=== PATIENT | female | born 1950 | race Asian ===

== ENCOUNTER 2016-07-12 23:10 | Inpatient (IN) | payer MEDICARE, OTHER ==
[~2016-07-12] VITALS: Ht 152.4 cm; Wt 57.9 kg
[~2016-07-12 23:10] MED LIST: ACET-2902 PO; ADV100 IH; ALBU8.5H IH; AMLO-512 PO; ATOR40TA28 PO; CLON.2 PO; FURO40 PO; HYDR50 PO; INSLAN SQ; ISOS30TA6 PO; TIOT185 IH; VITAD1000 PO
[2016-07-12 23:27] LABS: GLUCOSE COMMENT 1 Doctor Notified; GLUCOSE,POINT OF CARE 390 MG/DL (70-110)
[2016-07-12] MEDS ORDERED: BUME1TAB30 PO (23:28)
[2016-07-12] MEDS ORDERED: POTA10TA14 PO (23:28)
[2016-07-12] MEDS ORDERED: OMEG-11 PO (23:28)
[2016-07-12] MEDS ORDERED: INSU100I15 SQ (23:28)
[2016-07-12] MEDS ORDERED: ALLO100T PO (23:28)
[2016-07-12] MEDS ORDERED: ASPI81 PO (23:28)
[2016-07-12] MEDS ORDERED: ENAL20 PO (23:28)
[2016-07-12] MEDS ORDERED: NIFE60TA81 PO (23:28)
[2016-07-12] MEDS ORDERED: CARV3 PO (23:28)
[2016-07-13] VITALS (8 sets, daily range): BP systolic 97–189; BP diastolic 50–77
[2016-07-13 00:09] LABS: BASOPHILS % (AUTO) 0.6 % (0.0-2.0); EOSINOPHILS % (AUTO) 3.2 % (1.0-6.0); HEMATOCRIT 29.8 % (36-46); HEMOGLOBIN 9.2 g/dL (12.0-16.0); LYMPHOCYTES # (AUTO) 0.9 K/uL (1.0-4.8); LYMPHOCYTES % (AUTO) 11.6 % (22.0-44.0); MEAN CORPUSCULAR HEMOGLOBIN 25.2 pg (26.0-34.0); MEAN CORPUSCULAR HGB CONC 30.7 G/dL (31.0-37.0); MEAN CORPUSCULAR VOLUME 82 fL (80-100); MONOCYTES # (AUTO) 0.4 K/uL (0.1-1.0); MONOCYTES % (AUTO) 4.5 % (2.0-9.0); NEUTROPHILS # (AUTO) 6.3 K/uL (1.8-7.7); NEUTROPHILS % (AUTO) 80.1 % (40.0-70.0); PLATELET COUNT (AUTO) 339 K/uL (150-450); RED BLOOD CELL COUNT(AUTO) 3.63 MIL/uL (4.00-5.20); RED CELL DISTRIBUTION WIDTH 17.7 % (11.5-14.5); WHITE BLOOD COUNT (AUTO) 7.9 K/uL (4.5-11.0)
[2016-07-13 00:22] LABS: CALCIUM, TOTAL 8.1 mg/dL (8.8-10.5); CREATININE 3.17 mg/dL (0.60-1.30); POTASSIUM 4.4 mmol/L (3.5-5.1)
[2016-07-13] MEDS ORDERED: INSULIN REGULAR, HUMAN 100 UNITS/ML SQ ONE (01:00)
[2016-07-13 01:04] LABS: ALBUMIN 2.4 g/dL (3.4-5.0); BILIRUBIN,TOTAL 0.3 mg/dL (0.1-1.0); CREATINE KINASE MB 5.7 ng/mL (0-5); TOTAL PROTEIN, SERUM 7.5 g/dL (6.4-8.2)
[2016-07-13] MEDS ORDERED: INSULIN REGULAR, HUMAN 100 UNITS/ML IVP ONE (01:15)
[2016-07-13] MEDS ORDERED: ACETAMINOPHEN 1000 MG/ISO-OSM 100 ML IV ONE (01:30)
[2016-07-13] MEDS ORDERED: FUROSEMIDE 40 MG/4 ML VIAL IVP ONE (01:30)
[2016-07-13] MEDS ORDERED: FUROSEMIDE 20 MG/2 ML VIAL IVP ONE (01:30)
[2016-07-13 03:22] LABS: GLUCOSE,POINT OF CARE 179 MG/DL (70-110)
[2016-07-13] MEDS ORDERED: 0.9% SODIUM CHLORIDE 10 ML SYRINGE IVP PRN ×2 (03:45→14:15)
[2016-07-13] MEDS ORDERED: ONDANSETRON HCL 4 MG/2 ML VIAL IVP PRN ×2 (03:45→14:15)
[2016-07-13] MEDS ORDERED: ACETAMINOPHEN 325 MG TABLET PO PRN (03:45)
[2016-07-13] MEDS ORDERED: KDUR20 PO (12:22)
[2016-07-13] MEDS ORDERED: INSULIN ASPART 100 UNITS/ML SQ PRN (12:30)
[2016-07-13] MEDS ORDERED: DEXTROSE 50%-WATER 25 GM/50 ML SYRINGE IVP PRN ×3 (12:30→18:15)
[2016-07-13] MEDS ORDERED: CARVEDILOL 3.125 MG TABLET PO SCH (14:00)
[2016-07-13] MEDS: POTASSIUM CHLORIDE 20 MEQ ER TABLET PO SCH ×2 (14:00→20:39)
[2016-07-13] MEDS ORDERED: NIFEdipine 60 MG ER TABLET PO SCH (14:00)
[2016-07-13] MEDS ORDERED: MAGNESIUM HYDROXIDE SUSPENSION 30 ML UDCUP PO PRN (14:15)
[2016-07-13] MEDS: CHOLECALCIFEROL (VIT D3) 1,000 UNITS TABLET PO SCH (15:05)
[2016-07-13] MEDS: PANTOPRAZOLE SODIUM 40 MG/VIAL IVP SCH (15:05)
[2016-07-13] MEDS: ASPIRIN 81 MG CHEWABLE TABLET PO SCH (15:05)
[2016-07-13] MEDS: DOCUSATE SODIUM 100 MG CAPSULE PO SCH ×2 (15:05→20:39)
[2016-07-13] MEDS: ATORVASTATIN CALCIUM 40 MG TABLET PO SCH (15:05)
[2016-07-13] MEDS: AmLODIPine BESYLATE 10 MG TABLET PO SCH (15:05)
[2016-07-13] MEDS: BUMETANIDE 0.25 MG/ML 10 ML VIAL IVP SCH ×2 (15:24→20:39)
[2016-07-13] MEDS: FISH OIL/OMEGA-3 FATTY ACIDS 500 MG CAPSULE PO SCH (15:25)
[2016-07-13] MEDS: TIOTROPIUM BROMIDE 18 MCG/INH HANDIHALER [5] IH SCH (15:25)
[2016-07-13] MEDS: ENALAPRIL MALEATE 20 MG TABLET PO SCH (15:25)
[2016-07-13] MEDS: ALLOPURINOL 100 MG TABLET PO SCH (15:25)
[2016-07-13] MEDS: CloNIDine HCL 0.2 MG TABLET PO SCH (15:25)
[2016-07-13] MEDS: HydrALAZINE HCL 50 MG TABLET PO SCH ×3 (15:35→21:00)
[2016-07-13] MEDS ORDERED: HydrALAZINE HCL 20 MG/ML VIAL IVP PRN (17:15)
[2016-07-13] MEDS: HydrALAZINE HCL 20 MG/ML VIAL IVP PRN (18:19)
[2016-07-13] MEDS: INSULIN ASPART 100 UNITS/ML SQ PRN ×2 (18:22→20:45)
[2016-07-13] MEDS ORDERED: INSULIN DETEMIR 100 UNITS/ML SQ SCH (21:00)
[2016-07-13] MEDS: MORPHINE SULFATE 2 MG/ML SYRINGE IVP PRN (21:55)
[2016-07-13] MEDS ORDERED: SODIUM CHLORIDE 0.9% 250 ML IV ONE (21:59)
[2016-07-13] MEDS ORDERED: ALBUMIN HUMAN 25%-12.5GM/50ML 50 ML IV ONE (22:00)
[2016-07-14] VITALS (8 sets, daily range): BP systolic 136–172; BP diastolic 66–80
[2016-07-14] MEDS: MORPHINE SULFATE 2 MG/ML SYRINGE IVP PRN ×2 (04:40→13:15)
[2016-07-14 07:14] LABS: BASOPHILS % (AUTO) 0.5 % (0.0-2.0); EOSINOPHILS % (AUTO) 4.3 % (1.0-6.0); HEMATOCRIT 26.9 % (36-46); HEMOGLOBIN 8.4 g/dL (12.0-16.0); LYMPHOCYTES # (AUTO) 0.7 K/uL (1.0-4.8); LYMPHOCYTES % (AUTO) 8.5 % (22.0-44.0); MEAN CORPUSCULAR HEMOGLOBIN 25.7 pg (26.0-34.0); MEAN CORPUSCULAR HGB CONC 31.2 G/dL (31.0-37.0); MEAN CORPUSCULAR VOLUME 82 fL (80-100); MONOCYTES # (AUTO) 0.5 K/uL (0.1-1.0); MONOCYTES % (AUTO) 6.2 % (2.0-9.0); NEUTROPHILS # (AUTO) 6.5 K/uL (1.8-7.7); NEUTROPHILS % (AUTO) 80.5 % (40.0-70.0); PLATELET COUNT (AUTO) 314 K/uL (150-450); RED BLOOD CELL COUNT(AUTO) 3.27 MIL/uL (4.00-5.20); RED CELL DISTRIBUTION WIDTH 17.7 % (11.5-14.5)
[2016-07-14 07:49] LABS: B-TYPE NATRIURETIC PEPTIDE 851 pg/mL (0-100)
[2016-07-14 07:56] LABS: ANION GAP 10 mmol/L (8-16); CALCIUM, TOTAL 7.7 mg/dL (8.8-10.5); CARBON DIOXIDE 21 mmol/L (22-29); CHLORIDE 104 mmol/L (98-107); CREATINE KINASE MB 3.9 ng/mL (0-5); CREATINE KINASE, TOTAL 90 U/L (26-192); CREATININE 3.33 mg/dL (0.60-1.30); GLOMERULAR FILTR. RATE CALC 14 mL/min (>60); POTASSIUM 4.5 mmol/L (3.5-5.1); SODIUM SERUM 135 mmol/L (136-145); UREA NITROGEN, BLOOD 63 mg/dL (7-18)
[2016-07-14] MEDS: ENALAPRIL MALEATE 20 MG TABLET PO SCH (08:05)
[2016-07-14] MEDS: PANTOPRAZOLE SODIUM 40 MG/VIAL IVP SCH (08:05)
[2016-07-14] MEDS: CHOLECALCIFEROL (VIT D3) 1,000 UNITS TABLET PO SCH (08:05)
[2016-07-14] MEDS: TIOTROPIUM BROMIDE 18 MCG/INH HANDIHALER [5] IH SCH (08:05)
[2016-07-14] MEDS: BUMETANIDE 0.25 MG/ML 10 ML VIAL IVP SCH ×2 (08:05→21:25)
[2016-07-14] MEDS: ALLOPURINOL 100 MG TABLET PO SCH (08:05)
[2016-07-14] MEDS: ASPIRIN 81 MG CHEWABLE TABLET PO SCH (08:06)
[2016-07-14] MEDS: HydrALAZINE HCL 50 MG TABLET PO SCH ×3 (08:06→21:27)
[2016-07-14] MEDS: CloNIDine HCL 0.2 MG TABLET PO SCH (08:06)
[2016-07-14] MEDS: DOCUSATE SODIUM 100 MG CAPSULE PO SCH ×2 (08:06→21:27)
[2016-07-14] MEDS: ATORVASTATIN CALCIUM 40 MG TABLET PO SCH (08:06)
[2016-07-14] MEDS: FISH OIL/OMEGA-3 FATTY ACIDS 500 MG CAPSULE PO SCH (08:06)
[2016-07-14] MEDS: POTASSIUM CHLORIDE 20 MEQ ER TABLET PO SCH (09:00)
[2016-07-14 10:28] LABS: RBC MORPHOLOGY COMMENT ABNORMAL RBC MORPH
[2016-07-14] MEDS: AmLODIPine BESYLATE 10 MG TABLET PO SCH (11:20)
[2016-07-14] MEDS: HydrALAZINE HCL 20 MG/ML VIAL IVP PRN (12:03)
[2016-07-14] MEDS: METOLAZONE 2.5 MG TABLET PO SCH ×2 (12:20→21:27)
[2016-07-14] MEDS: ACETAMINOPHEN 325 MG TABLET PO PRN (12:21)
[2016-07-14] MEDS ORDERED: EPOETIN ALFA 10,000 UNITS/ML VIAL SQ SCH (20:00)
[2016-07-14] MEDS: INSULIN DETEMIR 100 UNITS/ML SQ SCH (21:00)
[2016-07-14] MEDS: INSULIN ASPART 100 UNITS/ML SQ PRN (21:31)
[2016-07-15] VITALS (7 sets, daily range): BP systolic 140–168; BP diastolic 69–81
[2016-07-15] MEDS: INSULIN ASPART 100 UNITS/ML SQ PRN ×4 (05:59→20:53)
[2016-07-15 06:33] LABS: BASOPHILS % (AUTO) 0.5 % (0.0-2.0); EOSINOPHILS % (AUTO) 2.7 % (1.0-6.0); HEMATOCRIT 28.8 % (36-46); LYMPHOCYTES # (AUTO) 0.8 K/uL (1.0-4.8); MEAN CORPUSCULAR HEMOGLOBIN 25.7 pg (26.0-34.0); MEAN CORPUSCULAR HGB CONC 31.3 G/dL (31.0-37.0); MEAN CORPUSCULAR VOLUME 82 fL (80-100); MONOCYTES # (AUTO) 0.6 K/uL (0.1-1.0); MONOCYTES % (AUTO) 7.5 % (2.0-9.0); NEUTROPHILS # (AUTO) 6.6 K/uL (1.8-7.7); NEUTROPHILS % (AUTO) 79.3 % (40.0-70.0); PLATELET COUNT (AUTO) 345 K/uL (150-450); RED BLOOD CELL COUNT(AUTO) 3.51 MIL/uL (4.00-5.20); RED CELL DISTRIBUTION WIDTH 17.8 % (11.5-14.5); WHITE BLOOD COUNT (AUTO) 8.3 K/uL (4.5-11.0)
[2016-07-15 06:56] LABS: CALCIUM, TOTAL 8.2 mg/dL (8.8-10.5); CREATININE 3.34 mg/dL (0.60-1.30); POTASSIUM 4.5 mmol/L (3.5-5.1)
[2016-07-15 08:00] LABS: RBC MORPHOLOGY COMMENT ABNORMAL RBC MORPH
[2016-07-15] MEDS: AmLODIPine BESYLATE 10 MG TABLET PO SCH (08:06)
[2016-07-15] MEDS: DOCUSATE SODIUM 100 MG CAPSULE PO SCH ×2 (08:06→20:09)
[2016-07-15] MEDS: ATORVASTATIN CALCIUM 40 MG TABLET PO SCH (08:06)
[2016-07-15] MEDS: CHOLECALCIFEROL (VIT D3) 1,000 UNITS TABLET PO SCH (08:07)
[2016-07-15] MEDS: ASPIRIN 81 MG CHEWABLE TABLET PO SCH (08:07)
[2016-07-15] MEDS: ALLOPURINOL 100 MG TABLET PO SCH (08:07)
[2016-07-15] MEDS: CloNIDine HCL 0.2 MG TABLET PO SCH (08:07)
[2016-07-15] MEDS: FISH OIL/OMEGA-3 FATTY ACIDS 500 MG CAPSULE PO SCH (08:07)
[2016-07-15] MEDS: METOLAZONE 2.5 MG TABLET PO SCH ×2 (08:07→20:09)
[2016-07-15] MEDS: ENALAPRIL MALEATE 20 MG TABLET PO SCH (08:07)
[2016-07-15] MEDS: TIOTROPIUM BROMIDE 18 MCG/INH HANDIHALER [5] IH SCH (08:16)
[2016-07-15] MEDS: HydrALAZINE HCL 50 MG TABLET PO SCH ×3 (09:20→20:09)
[2016-07-15] MEDS: PANTOPRAZOLE SODIUM 40 MG/VIAL IVP SCH (10:08)
[2016-07-15] MEDS: BUMETANIDE 0.25 MG/ML 10 ML VIAL IVP SCH ×2 (10:08→20:43)
[2016-07-15] MEDS: SOD FERRIC GLUC COMPLX/SUCROSE 125 MG in SODIUM CHLORIDE 0.9% 100 ML IV SCH (11:47)
[2016-07-15] MEDS ORDERED: CHOLECALCIFEROL (VIT D3) 1,000 UNITS TABLET PO SCH (15:00)
[2016-07-15] MEDS: ACETAMINOPHEN 325 MG TABLET PO PRN (20:10)
[2016-07-15] MEDS: INSULIN DETEMIR 100 UNITS/ML SQ SCH (20:51)
[2016-07-16] VITALS (8 sets, daily range): BP systolic 114–186; BP diastolic 63–88
[2016-07-16] MEDS: INSULIN ASPART 100 UNITS/ML SQ PRN ×4 (06:05→20:38)
[2016-07-16 06:25] LABS: CALCIUM, TOTAL 7.9 mg/dL (8.8-10.5); CREATININE 3.64 mg/dL (0.60-1.30); MAGNESIUM 1.9 mg/dL (1.80-2.40); PHOSPHORUS 4.4 mg/dL (2.5-4.9); POTASSIUM 4.3 mmol/L (3.5-5.1)
[2016-07-16 06:47] LABS: GLUCOSE COMMENT 1 Received Meds; GLUCOSE,POINT OF CARE 251 MG/DL (70-110)
[2016-07-16 06:47] LABS: GLUCOSE,POINT OF CARE 191 MG/DL (70-110)
[2016-07-16 06:48] LABS: GLUCOSE,POINT OF CARE 87 MG/DL (70-110)
[2016-07-16 06:48] LABS: GLUCOSE,POINT OF CARE 96 MG/DL (70-110)
[2016-07-16 06:48] LABS: GLUCOSE COMMENT 1 Juice/Food/D50 Given; GLUCOSE,POINT OF CARE 41 MG/DL (70-110)
[2016-07-16 06:48] LABS: GLUCOSE COMMENT 1 Received Meds; GLUCOSE,POINT OF CARE 210 MG/DL (70-110)
[2016-07-16 06:48] LABS: GLUCOSE COMMENT 1 Received Meds; GLUCOSE,POINT OF CARE 203 MG/DL (70-110)
[2016-07-16 06:48] LABS: GLUCOSE,POINT OF CARE 167 MG/DL (70-110)
[2016-07-16 06:52] LABS: GLUCOSE COMMENT 1 Received Meds; GLUCOSE,POINT OF CARE 152 MG/DL (70-110)
[2016-07-16 06:52] LABS: GLUCOSE COMMENT 1 Received Meds; GLUCOSE,POINT OF CARE 223 MG/DL (70-110)
[2016-07-16 06:52] LABS: GLUCOSE COMMENT 1 Received Meds; GLUCOSE,POINT OF CARE 157 MG/DL (70-110)
[2016-07-16 07:12] LABS: GLUCOSE COMMENT 1 Received Meds; GLUCOSE,POINT OF CARE 171 MG/DL (70-110)
[2016-07-16] MEDS: TIOTROPIUM BROMIDE 18 MCG/INH HANDIHALER [5] IH SCH (08:57)
[2016-07-16] MEDS: ASPIRIN 81 MG CHEWABLE TABLET PO SCH (08:57)
[2016-07-16] MEDS: DOCUSATE SODIUM 100 MG CAPSULE PO SCH ×2 (08:57→20:21)
[2016-07-16] MEDS: CHOLECALCIFEROL (VIT D3) 1,000 UNITS TABLET PO SCH (08:57)
[2016-07-16] MEDS: AmLODIPine BESYLATE 10 MG TABLET PO SCH (08:58)
[2016-07-16] MEDS: ENALAPRIL MALEATE 20 MG TABLET PO SCH (08:58)
[2016-07-16] MEDS: ALLOPURINOL 100 MG TABLET PO SCH (08:58)
[2016-07-16] MEDS: HydrALAZINE HCL 50 MG TABLET PO SCH ×3 (08:58→20:21)
[2016-07-16] MEDS: METOLAZONE 2.5 MG TABLET PO SCH ×2 (08:58→20:21)
[2016-07-16] MEDS: ATORVASTATIN CALCIUM 40 MG TABLET PO SCH (08:58)
[2016-07-16] MEDS: FISH OIL/OMEGA-3 FATTY ACIDS 500 MG CAPSULE PO SCH (08:58)
[2016-07-16] MEDS: PANTOPRAZOLE SODIUM 40 MG/VIAL IVP SCH (08:59)
[2016-07-16] MEDS: CloNIDine HCL 0.2 MG TABLET PO SCH (08:59)
[2016-07-16] MEDS: SOD FERRIC GLUC COMPLX/SUCROSE 125 MG in SODIUM CHLORIDE 0.9% 100 ML IV SCH (11:01)
[2016-07-16] MEDS: BUMETANIDE 0.25 MG/ML 10 ML VIAL IVP SCH ×2 (11:01→20:39)
[2016-07-16] MEDS ORDERED: BUME1TAB30 PO (15:05)
[2016-07-16] MEDS ORDERED: CHOL200012 PO (15:10)
[2016-07-16] MEDS ORDERED: VITAD1000 PO (15:11)
[2016-07-16] MEDS ORDERED: CloNIDine HCL 0.1 MG TABLET PO ONE (16:45)
[2016-07-16] MEDS: ACETAMINOPHEN 325 MG TABLET PO PRN (17:01)
[2016-07-16] MEDS: HydrALAZINE HCL 20 MG/ML VIAL IVP PRN ×2 (19:10→23:56)
[2016-07-16] MEDS: MORPHINE SULFATE 2 MG/ML SYRINGE IVP PRN (20:22)
[2016-07-16] MEDS: INSULIN DETEMIR 100 UNITS/ML SQ SCH (20:44)
[2016-07-17] VITALS (11 sets, daily range): BP systolic 152–189; BP diastolic 61–85
[2016-07-17] MEDS: HydrALAZINE HCL 20 MG/ML VIAL IVP PRN ×2 (04:34→23:05)
[2016-07-17] MEDS: INSULIN ASPART 100 UNITS/ML SQ PRN ×4 (06:35→20:49)
[2016-07-17] MEDS: CloNIDine HCL 0.2 MG TABLET PO SCH (06:35)
[2016-07-17] MEDS: TIOTROPIUM BROMIDE 18 MCG/INH HANDIHALER [5] IH SCH (09:23)
[2016-07-17] MEDS: PANTOPRAZOLE SODIUM 40 MG/VIAL IVP SCH (09:26)
[2016-07-17] MEDS: HydrALAZINE HCL 50 MG TABLET PO SCH ×3 (09:26→20:13)
[2016-07-17] MEDS: ASPIRIN 81 MG CHEWABLE TABLET PO SCH (09:27)
[2016-07-17] MEDS: DOCUSATE SODIUM 100 MG CAPSULE PO SCH ×2 (09:28→20:13)
[2016-07-17] MEDS: FISH OIL/OMEGA-3 FATTY ACIDS 500 MG CAPSULE PO SCH (09:28)
[2016-07-17] MEDS: AmLODIPine BESYLATE 5 MG TABLET PO SCH (09:29)
[2016-07-17] MEDS: ATORVASTATIN CALCIUM 40 MG TABLET PO SCH (09:29)
[2016-07-17] MEDS: ENALAPRIL MALEATE 20 MG TABLET PO SCH (09:30)
[2016-07-17] MEDS: CHOLECALCIFEROL (VIT D3) 1,000 UNITS TABLET PO SCH (09:30)
[2016-07-17] MEDS: METOLAZONE 2.5 MG TABLET PO SCH ×2 (09:31→20:12)
[2016-07-17] MEDS: ALLOPURINOL 100 MG TABLET PO SCH (09:31)
[2016-07-17] MEDS: BUMETANIDE 0.25 MG/ML 10 ML VIAL IVP SCH ×2 (10:30→20:46)
[2016-07-17] MEDS: SOD FERRIC GLUC COMPLX/SUCROSE 125 MG in SODIUM CHLORIDE 0.9% 100 ML IV SCH (11:05)
[2016-07-17] MEDS ORDERED: SODIUM CHLORIDE 0.9% 250 ML IV ONE (11:14)
[2016-07-17] MEDS: INSULIN DETEMIR 100 UNITS/ML SQ SCH (20:47)
[2016-07-18] VITALS (10 sets, daily range): BP systolic 145–181; BP diastolic 62–82
[2016-07-18] MEDS: HydrALAZINE HCL 20 MG/ML VIAL IVP PRN ×2 (04:59→18:57)
[2016-07-18] MEDS: ENALAPRIL MALEATE 20 MG TABLET PO SCH (08:21)
[2016-07-18] MEDS: DOCUSATE SODIUM 100 MG CAPSULE PO SCH ×2 (08:21→21:21)
[2016-07-18] MEDS: PANTOPRAZOLE SODIUM 40 MG/VIAL IVP SCH (08:21)
[2016-07-18] MEDS: CHOLECALCIFEROL (VIT D3) 1,000 UNITS TABLET PO SCH (08:22)
[2016-07-18] MEDS: TIOTROPIUM BROMIDE 18 MCG/INH HANDIHALER [5] IH SCH (08:22)
[2016-07-18] MEDS: AmLODIPine BESYLATE 5 MG TABLET PO SCH (08:22)
[2016-07-18] MEDS: CloNIDine HCL 0.2 MG TABLET PO SCH (08:22)
[2016-07-18] MEDS: ATORVASTATIN CALCIUM 40 MG TABLET PO SCH (08:23)
[2016-07-18] MEDS: METOLAZONE 2.5 MG TABLET PO SCH ×2 (08:23→21:21)
[2016-07-18] MEDS: FISH OIL/OMEGA-3 FATTY ACIDS 500 MG CAPSULE PO SCH (08:23)
[2016-07-18] MEDS: HydrALAZINE HCL 50 MG TABLET PO SCH ×3 (08:23→21:21)
[2016-07-18] MEDS: ALLOPURINOL 100 MG TABLET PO SCH (08:23)
[2016-07-18] MEDS: ASPIRIN 81 MG CHEWABLE TABLET PO SCH (08:24)
[2016-07-18] MEDS: SOD FERRIC GLUC COMPLX/SUCROSE 125 MG in SODIUM CHLORIDE 0.9% 100 ML IV SCH (09:59)
[2016-07-18] MEDS: BUMETANIDE 0.25 MG/ML 10 ML VIAL IVP SCH ×2 (09:59→22:09)
[2016-07-18] MEDS ORDERED: BISACODYL 10 MG RECTAL RECTAL SUPPOSITORY PR PRN (11:00)
[2016-07-18] MEDS: INSULIN ASPART 100 UNITS/ML SQ PRN ×3 (11:53→21:42)
[2016-07-18 12:57] LABS: GLUCOSE COMMENT 1 Received Meds; GLUCOSE,POINT OF CARE 225 MG/DL (70-110)
[2016-07-18 12:57] LABS: GLUCOSE COMMENT 1 Received Meds; GLUCOSE,POINT OF CARE 175 MG/DL (70-110)
[2016-07-18 13:02] LABS: GLUCOSE COMMENT 1 Received Meds; GLUCOSE,POINT OF CARE 236 MG/DL (70-110)
[2016-07-18] MEDS: INSULIN DETEMIR 100 UNITS/ML SQ SCH (21:41)
[2016-07-19 03:51] VITALS: BP 153/75
[2016-07-19 07:58] VITALS: BP 166/91
[2016-07-19] MEDS: TIOTROPIUM BROMIDE 18 MCG/INH HANDIHALER [5] IH SCH (09:29)
[2016-07-19] MEDS: PANTOPRAZOLE SODIUM 40 MG/VIAL IVP SCH (09:30)
[2016-07-19] MEDS: HydrALAZINE HCL 50 MG TABLET PO SCH ×3 (09:31→21:50)
[2016-07-19] MEDS: ASPIRIN 81 MG CHEWABLE TABLET PO SCH (09:31)
[2016-07-19] MEDS: FISH OIL/OMEGA-3 FATTY ACIDS 500 MG CAPSULE PO SCH (09:32)
[2016-07-19] MEDS: CHOLECALCIFEROL (VIT D3) 1,000 UNITS TABLET PO SCH (09:32)
[2016-07-19] MEDS: DOCUSATE SODIUM 100 MG CAPSULE PO SCH ×2 (09:32→21:50)
[2016-07-19 09:33] LABS: BASOPHILS % (AUTO) 1.2 % (0.0-2.0); HEMATOCRIT 29.2 % (36-46); HEMOGLOBIN 9.1 g/dL (12.0-16.0); LYMPHOCYTES % (AUTO) 13.2 % (22.0-44.0); MEAN CORPUSCULAR HEMOGLOBIN 25.5 pg (26.0-34.0); MEAN CORPUSCULAR HGB CONC 31.2 G/dL (31.0-37.0); MEAN CORPUSCULAR VOLUME 82 fL (80-100); MONOCYTES # (AUTO) 0.5 K/uL (0.1-1.0); NEUTROPHILS % (AUTO) 75.6 % (40.0-70.0); PLATELET COUNT (AUTO) 367 K/uL (150-450); RED BLOOD CELL COUNT(AUTO) 3.58 MIL/uL (4.00-5.20); RED CELL DISTRIBUTION WIDTH 17.9 % (11.5-14.5); WHITE BLOOD COUNT (AUTO) 7.9 K/uL (4.5-11.0)
[2016-07-19] MEDS: METOLAZONE 2.5 MG TABLET PO SCH ×2 (09:33→21:51)
[2016-07-19] MEDS: ALLOPURINOL 100 MG TABLET PO SCH (09:33)
[2016-07-19] MEDS: AmLODIPine BESYLATE 5 MG TABLET PO SCH (09:34)
[2016-07-19 09:38] LABS: RBC MORPHOLOGY COMMENT ABNORMAL RBC MORPH
[2016-07-19 09:44] LABS: INR 1.1 (0.9-1.1); PROTHROMBIN TIME 11.2 SEC (9.4-11.6)
[2016-07-19] MEDS: ATORVASTATIN CALCIUM 40 MG TABLET PO SCH (09:46)
[2016-07-19 09:47] LABS: CALCIUM, TOTAL 8.5 mg/dL (8.8-10.5); CREATININE 3.81 mg/dL (0.60-1.30); POTASSIUM 3.9 mmol/L (3.5-5.1)
[2016-07-19] MEDS ORDERED: SODIUM CHLORIDE 0.9% 1,000 ML IV ONE ×3 (10:21→11:00)
[2016-07-19] MEDS ORDERED: CeFAZolin 2 GM/DEXTROSE 50 ML IV ONE (10:22)
[2016-07-19] MEDS: ENALAPRIL MALEATE 20 MG TABLET PO SCH (10:35)
[2016-07-19] MEDS: CloNIDine HCL 0.2 MG TABLET PO SCH (10:35)
[2016-07-19] MEDS: BUMETANIDE 0.25 MG/ML 10 ML VIAL IVP SCH ×2 (10:35→21:49)
[2016-07-19] MEDS ORDERED: BUPIVACAINE HCL/PF 0.5% 30 ML VIAL ONE (10:47)
[2016-07-19 11:32] LABS: GLUCOSE,POINT OF CARE 135 MG/DL (70-110)
[2016-07-19] MEDS ORDERED: MEPERIDINE-PF 25 MG/ML SYRINGE IVP PRN (12:15)
[2016-07-19] MEDS ORDERED: HYDROmorphone 2 MG/ML SYRINGE IVP PRN (12:15)
[2016-07-19] MEDS ORDERED: FentaNYL CITRATE-PF 100 MCG/2 ML VIAL IVP PRN (12:15)
[2016-07-19 13:30] VITALS: BP 182/84
[2016-07-19] MEDS: SOD FERRIC GLUC COMPLX/SUCROSE 125 MG in SODIUM CHLORIDE 0.9% 100 ML IV SCH (13:57)
[2016-07-19 15:28] VITALS: BP 162/108
[2016-07-19 15:52] LABS: GLUCOSE,POINT OF CARE 135 MG/DL (70-110)
[2016-07-19] MEDS: INSULIN ASPART 100 UNITS/ML SQ PRN ×2 (17:23→22:10)
[2016-07-19 18:21] VITALS: BP 162/78
[2016-07-19] MEDS: HydrALAZINE HCL 20 MG/ML VIAL IVP PRN (18:26)
[2016-07-19 19:36] VITALS: BP 145/89
[2016-07-19] MEDS: OXYGEN THERAPY IH SCH (21:48)
[2016-07-19] MEDS: INSULIN DETEMIR 100 UNITS/ML SQ SCH (22:14)
[2016-07-19] MEDS ORDERED: FentaNYL CITRATE-PF 100 MCG/2 ML VIAL IVP ONE (23:25)
[2016-07-19] MEDS ORDERED: PHENYLEPHRINE HCL 10 MG/ML VIAL IVP ONE (23:25)
[2016-07-20 00:21] VITALS: BP 170/77
[2016-07-20] MEDS: HydrALAZINE HCL 20 MG/ML VIAL IVP PRN (00:38)
[2016-07-20 04:11] VITALS: BP 149/73
[2016-07-20 07:16] VITALS: BP 164/77
[2016-07-20] MEDS ORDERED: AmLODIPine BESYLATE 5 MG TABLET PO SCH (09:00)
[2016-07-20] MEDS: METOLAZONE 2.5 MG TABLET PO SCH (09:16)
[2016-07-20] MEDS: CHOLECALCIFEROL (VIT D3) 1,000 UNITS TABLET PO SCH (09:17)
[2016-07-20] MEDS: FISH OIL/OMEGA-3 FATTY ACIDS 500 MG CAPSULE PO SCH (09:17)
[2016-07-20] MEDS: ENALAPRIL MALEATE 20 MG TABLET PO SCH (09:17)
[2016-07-20] MEDS: OXYGEN THERAPY IH SCH (09:17)
[2016-07-20] MEDS: ATORVASTATIN CALCIUM 40 MG TABLET PO SCH (09:17)
[2016-07-20] MEDS: DOCUSATE SODIUM 100 MG CAPSULE PO SCH (09:18)
[2016-07-20] MEDS: ASPIRIN 81 MG CHEWABLE TABLET PO SCH (09:18)
[2016-07-20] MEDS: PANTOPRAZOLE SODIUM 40 MG/VIAL IVP SCH (09:18)
[2016-07-20] MEDS: HydrALAZINE HCL 50 MG TABLET PO SCH (09:18)
[2016-07-20] MEDS: CloNIDine HCL 0.2 MG TABLET PO SCH (09:19)
[2016-07-20] MEDS: ALLOPURINOL 100 MG TABLET PO SCH (09:19)
[2016-07-20] MEDS: BUMETANIDE 0.25 MG/ML 10 ML VIAL IVP SCH (09:53)
[2016-07-20] MEDS: SOD FERRIC GLUC COMPLX/SUCROSE 125 MG in SODIUM CHLORIDE 0.9% 100 ML IV SCH (09:54)
[2016-07-20] MEDS ORDERED: SODIUM CHLORIDE 0.9% 100 ML ONE (10:00)
[2016-07-20 11:41] VITALS: BP 139/57
[2016-07-20] MEDS: TIOTROPIUM BROMIDE 18 MCG/INH HANDIHALER [5] IH SCH (11:57)
[2016-07-20] MEDS: INSULIN ASPART 100 UNITS/ML SQ PRN (11:59)
[2016-07-21 01:31] LABS: GLUCOSE,POINT OF CARE 139 MG/DL (70-110)
[2016-07-21 01:37] LABS: GLUCOSE COMMENT 1 Received Meds; GLUCOSE,POINT OF CARE 166 MG/DL (70-110)
[2016-07-21 01:37] LABS: GLUCOSE,POINT OF CARE 62 MG/DL (70-110)
[2016-07-27 14:48] LABS: HEPATITIS Bs ANTIGEN SCREEN P Negative (Negative)
== END 2016-07-20 15:26 | disposition home or self-care (01) | DRG 981 ==
LOC: EMS 23:11 → 5S 07-13 03:15
PROVIDERS: ADMIT Internal Medicine; ATTEND Internal Medicine
PROC: 3E1M39Z Irrigation of Peritoneal Cavity using Dialysate, Percutaneous Approach (ICD-10-PCS; 2016-07-19)
PROC: 0WHG43Z Insertion of Infusion Device into Peritoneal Cavity, Percutaneous Endoscopic Approach (ICD-10-PCS; principal; 2016-07-19 12:00)
DX: I13.2 Hypertensive heart and chronic kidney disease with heart failure and with stage 5 chronic kidney disease, or end stage renal disease (principal); I50.33 Acute on chronic diastolic (congestive) heart failure; E43 Unspecified severe protein-calorie malnutrition; N18.6 End stage renal disease; N04.9 Nephrotic syndrome with unspecified morphologic changes; E87.1 Hypo-osmolality and hyponatremia; E11.22 Type 2 diabetes mellitus with diabetic chronic kidney disease; E11.21 Type 2 diabetes mellitus with diabetic nephropathy; E78.00 Pure hypercholesterolemia, unspecified; J44.9 Chronic obstructive pulmonary disease, unspecified; R62.7 Adult failure to thrive; M51.36 Other intervertebral disc degeneration, lumbar region; M47.816 Spondylosis without myelopathy or radiculopathy, lumbar region; M25.552 Pain in left hip; M51.37 Other intervertebral disc degeneration, lumbosacral region; M10.9 Gout, unspecified; D63.8 Anemia in other chronic diseases classified elsewhere; E11.319 Type 2 diabetes mellitus with unspecified diabetic retinopathy without macular edema; E55.9 Vitamin D deficiency, unspecified; E11.65 Type 2 diabetes mellitus with hyperglycemia; G89.29 Other chronic pain; E78.5 Hyperlipidemia, unspecified; I08.1 Rheumatic disorders of both mitral and tricuspid valves; I27.2 Other secondary pulmonary hypertension; Z88.5 Allergy status to narcotic agent; Z79.4 Long term (current) use of insulin; Z79.82 Long term (current) use of aspirin; Z79.1 Long term (current) use of non-steroidal anti-inflammatories (NSAID); Z79.891 Long term (current) use of opiate analgesic; Z79.51 Long term (current) use of inhaled steroids; Z79.899 Other long term (current) drug therapy; Z68.24 Body mass index [BMI] 24.0-24.9, adult
CPT/HCPCS: 72100; 73502; 82306; 82962; 83540; 83550; 83735; 83970; 84100; 86709; 87340; 93005; 93306; 93970; 96365; 96375; 97161; 99285; C9113; J0131; J0360; J0690; J0885; J1815; J1940; J2270; J2370; J2405; J2916; J3010; J3490; J7030; J7050; P9047

== ENCOUNTER 2017-03-01 16:34 | Emergency (ER) | payer MEDICARE, MEDICAID ==
[~2017-03-01] VITALS: Ht 152.4 cm; Wt 47.0 kg
[~2017-03-01 16:34] MED LIST changes: -ALBU8.5H IH; +ALBU8.5H8 IH; +ALLO100T PO; +ASPI81 PO; +BUME1TAB17 PO; +ENAL20 PO; -FURO40 PO; +HYDR-2924 PO; -HYDR50 PO; +INSU100I15 SQ; -ISOS30TA6 PO; +OMEG-11 PO
[2017-03-01 16:53] LABS: GLUCOSE,POINT OF CARE 216 MG/DL (70-110)
[2017-03-01 17:24] LABS: BASOPHILS % (AUTO) 0.5 % (0.0-2.0); EOSINOPHILS % (AUTO) 0.2 % (1.0-6.0); HEMATOCRIT 26.5 % (36-46); HEMOGLOBIN 8.8 g/dL (12.0-16.0); LYMPHOCYTES # (AUTO) 1.1 K/uL (1.0-4.8); LYMPHOCYTES % (AUTO) 11.3 % (22.0-44.0); MEAN CORPUSCULAR HEMOGLOBIN 29.5 pg (26.0-34.0); MEAN CORPUSCULAR HGB CONC 33.1 G/dL (31.0-37.0); MEAN CORPUSCULAR VOLUME 89 fL (80-100); MONOCYTES # (AUTO) 0.6 K/uL (0.1-1.0); NEUTROPHILS # (AUTO) 8.1 K/uL (1.8-7.7); PLATELET COUNT (AUTO) 156 K/uL (150-450); RED BLOOD CELL COUNT(AUTO) 2.98 MIL/uL (4.00-5.20); WHITE BLOOD COUNT (AUTO) 9.8 K/uL (4.5-11.0)
[2017-03-01 17:52] LABS: INR 1.4 (0.9-1.1); PROTHROMBIN TIME 15.3 SEC (9.4-11.6)
[2017-03-01 17:56] LABS: ALBUMIN 3.7 g/dL (3.4-5.0); BILIRUBIN,TOTAL 0.8 mg/dL (0.1-1.0); CALCIUM, TOTAL 8.6 mg/dL (8.8-10.5); CREATINE KINASE MB 9.5 ng/mL (0-5); CREATININE 5.59 mg/dL (0.60-1.30); POTASSIUM 4.8 mmol/L (3.5-5.1); TOTAL PROTEIN, SERUM 7.8 g/dL (6.4-8.2)
[2017-03-01] MEDS ORDERED: ASPIRIN 325 MG TABLET PO ONE (18:00)
[2017-03-01] MEDS ORDERED: MetroNIDAZOLE 250 MG TABLET PO ONE (18:45)
[2017-03-01] MEDS ORDERED: CeFAZolin 1 GM/DEXTROSE 50 ML IV ONE (18:45)
[2017-03-01] MEDS ORDERED: CloNIDine HCL 0.2 MG TABLET PO ONE (20:45)
[2017-03-01 22:05] VITALS: BP 176/86
[2017-03-01] MEDS ORDERED: NITROGLYCERIN 2% (1 GM=INCH) PACKET TP ONE (22:15)
== END 2017-03-01 23:17 | disposition short-term general hospital (02) ==
LOC: EMS 16:38
DX: I13.2 Hypertensive heart and chronic kidney disease with heart failure and with stage 5 chronic kidney disease, or end stage renal disease (principal); N18.6 End stage renal disease; I50.9 Heart failure, unspecified; K85.90 Acute pancreatitis without necrosis or infection, unspecified; K92.2 Gastrointestinal hemorrhage, unspecified; K81.9 Cholecystitis, unspecified; R74.0 Nonspecific elevation of levels of transaminase and lactic acid dehydrogenase [LDH]; R79.89 Other specified abnormal findings of blood chemistry; E11.22 Type 2 diabetes mellitus with diabetic chronic kidney disease; E78.00 Pure hypercholesterolemia, unspecified; F41.9 Anxiety disorder, unspecified; Z79.4 Long term (current) use of insulin; Z79.82 Long term (current) use of aspirin; Z99.2 Dependence on renal dialysis
CPT/HCPCS: 71010; 74176; 76705; 80053; 82271; 82550; 82553; 82962; 83690; 83880; 84484; 85025; 85610; 85730; 86850; 86900; 86901; 93005; 96365; 99291; J0690

== ENCOUNTER 2017-03-30 15:17 | Inpatient (IN) | payer MEDICARE, MEDICAID ==
[~2017-03-30] VITALS: Ht 157.5 cm; Wt 46.1 kg
[2017-03-30 16:01] LABS: BASOPHILS % (AUTO) 0.2 % (0.0-2.0); EOSINOPHILS % (AUTO) 0.1 % (1.0-6.0); HEMATOCRIT 30.1 % (36-46); HEMOGLOBIN 9.9 g/dL (12.0-16.0); LYMPHOCYTES # (AUTO) 0.7 K/uL (1.0-4.8); LYMPHOCYTES % (AUTO) 10.3 % (22.0-44.0); MEAN CORPUSCULAR HEMOGLOBIN 30.1 pg (26.0-34.0); MEAN CORPUSCULAR HGB CONC 32.8 G/dL (31.0-37.0); MEAN CORPUSCULAR VOLUME 92 fL (80-100); MONOCYTES # (AUTO) 0.3 K/uL (0.1-1.0); MONOCYTES % (AUTO) 3.9 % (2.0-9.0); NEUTROPHILS # (AUTO) 5.6 K/uL (1.8-7.7); PLATELET COUNT (AUTO) 268 K/uL (150-450); RED BLOOD CELL COUNT(AUTO) 3.29 MIL/uL (4.00-5.20); RED CELL DISTRIBUTION WIDTH 16.1 % (11.5-14.5)
[2017-03-30 16:03] LABS: NEUTROPHILS % (AUTO) 85.5 % (40.0-70.0)
[2017-03-30 16:14] LABS: INR 1.2 (0.9-1.1); PROTHROMBIN TIME 12.8 SEC (9.4-11.6)
[2017-03-30 16:21] LABS: CALCIUM, TOTAL 8.4 mg/dL (8.8-10.5); CREATININE 4.53 mg/dL (0.60-1.30); POTASSIUM 3.7 mmol/L (3.5-5.1)
[2017-03-30 16:25] LABS: ALBUMIN 3.1 g/dL (3.4-5.0); BILIRUBIN,TOTAL 0.7 mg/dL (0.1-1.0)
[2017-03-30 16:37] LABS: PLATELET MORPHOLOGY COMMENT NORMAL
[2017-03-30 16:40] LABS: APPEARANCE,URINE TURBID (CLEAR); BILIRUBIN,URINE NEGATIVE (NEGATIVE); GLUCOSE, URINE (UA) 100 mg/dL (NEGATIVE); KETONES,URINE NEGATIVE (NEGATIVE); LEUKOCYTE ESTERASE ,URINE LARGE (NEGATIVE); NITRATE,URINE NEGATIVE (NEGATIVE); OCCULT BLOOD,URINE TRACE (NEGATIVE); PH,URINE 5.5 (5.0-8.0); PROTEIN,URINE SEE CONFIRM (NEGATIVE); UROBILINOGEN,URINE 0.2 mg/dL (<=1.0)
[2017-03-30 16:53] LABS: CKMB RELATIVE INDEX 6.6 % (0.0-4.0); CREATINE KINASE MB 13.8 ng/mL (0-5)
[2017-03-30 17:17] LABS: SULFOSALICYLIC ACID,URINE 4+ (Negative)
[2017-03-30 17:18] LABS: RBC,URINE 0-2 /HPF (0-2); WBC,URINE Full Field /HPF (0-5)
[2017-03-30 17:19] LABS: BACTERIA,URINE Few /HPF (None Seen)
[2017-03-30 17:21] LABS: SQUAMOUS EPITHELIAL CELL,UR Few /LPF (None Seen)
[2017-03-30 18:42] LABS: GLUCOSE,POINT OF CARE 119 MG/DL (70-110)
[2017-03-30] MEDS ORDERED: ASPIRIN 81 MG CHEWABLE TABLET PO ONE (18:45)
[2017-03-30] MEDS ORDERED: CefTRIAXone 1 GM/DEXTROSE 50 ML IV ONE (19:00)
[2017-03-30] MEDS ORDERED: ACETAMINOPHEN 325 MG TABLET PO PRN (20:30)
[2017-03-30] MEDS ORDERED: 0.9% SODIUM CHLORIDE 10 ML SYRINGE IVP PRN (20:30)
[2017-03-30] MEDS ORDERED: ONDANSETRON HCL 4 MG/2 ML VIAL IVP PRN (20:30)
[2017-03-30 20:48] LABS: GLUCOSE,POINT OF CARE 80 MG/DL (70-110)
[2017-03-30 21:32] VITALS: BP 156/71
[2017-03-31] VITALS (10 sets, daily range): BP systolic 106–181; BP diastolic 52–83
[2017-03-31 02:17] LABS: GLUCOMETER DEV NAME(LOC) 5S 2N; GLUCOSE,POINT OF CARE 159 MG/DL (70-110)
[2017-03-31 02:17] LABS: GLUCOMETER DEV NAME(LOC) 5S 2N; GLUCOSE,POINT OF CARE 65 MG/DL (70-110)
[2017-03-31 05:53] LABS: GLUCOMETER DEV NAME(LOC) 5S 1L; GLUCOSE,POINT OF CARE 218 MG/DL (70-110)
[2017-03-31] MEDS: AmLODIPine BESYLATE 10 MG TABLET PO SCH (14:53)
[2017-03-31] MEDS: CloNIDine HCL 0.2 MG TABLET PO SCH (14:53)
[2017-03-31] MEDS: HydrALAZINE HCL 50 MG TABLET PO SCH ×2 (16:00→21:00)
[2017-03-31] MEDS ORDERED: ACETAMINOPHEN 325 MG TABLET PO PRN (17:15)
[2017-03-31] MEDS ORDERED: IPRATROPIUM BROMIDE 0.5 MG/2.5 ML NEB SOLUTION NEB PRN (17:15)
[2017-03-31] MEDS ORDERED: ZOLPIDEM TARTRATE 10 MG TABLET PO PRN (17:15)
[2017-03-31] MEDS ORDERED: MAGNESIUM HYDROXIDE SUSPENSION 30 ML UDCUP PO PRN (17:15)
[2017-03-31] MEDS ORDERED: ONDANSETRON HCL 4 MG/2 ML VIAL IVP PRN (17:15)
[2017-03-31] MEDS: NITROGLYCERIN 2% (1 GM=INCH) PACKET TP SCH (18:58)
[2017-03-31] MEDS ORDERED: HEPARIN SODIUM 25000 UNITS/D5W 250 ML IV PRN (20:07)
[2017-03-31 20:13] LABS: GLUCOMETER DEV NAME(LOC) 5S 2N; GLUCOSE,POINT OF CARE 170 MG/DL (70-110)
[2017-03-31 20:13] LABS: GLUCOMETER DEV NAME(LOC) 5S 2N; GLUCOSE,POINT OF CARE 122 MG/DL (70-110)
[2017-03-31 20:13] LABS: GLUCOMETER DEV NAME(LOC) 5S 2N; GLUCOSE,POINT OF CARE 135 MG/DL (70-110)
[2017-03-31] MEDS ORDERED: HEPARIN SODIUM,PORCINE 5,000 UNITS/ML VIAL IVP PRN ×2 (20:15)
[2017-03-31] MEDS ORDERED: HEPARIN SODIUM,PORCINE 5,000 UNITS/ML VIAL IVP ONE (20:15)
[2017-03-31] MEDS: BUMETANIDE 1 MG TABLET PO SCH (21:11)
[2017-03-31] MEDS: DOCUSATE SODIUM 100 MG CAPSULE PO SCH (21:11)
[2017-03-31 21:28] LABS: GLUCOMETER DEV NAME(LOC) 5S 1L; GLUCOSE,POINT OF CARE 192 MG/DL (70-110)
[2017-04-01] MEDS: NITROGLYCERIN 2% (1 GM=INCH) PACKET TP SCH ×5 (00:20→23:27)
[2017-04-01 04:19] VITALS: BP 139/71
[2017-04-01 06:46] LABS: CHOL/HDL RATIO 1.7 (3.9-5.7)
[2017-04-01 07:13] VITALS: BP 153/64
[2017-04-01] MEDS ORDERED: EPOETIN ALFA 10,000 UNITS/ML 2 ML VIAL SQ SCH (09:00)
[2017-04-01] MEDS: HydrALAZINE HCL 50 MG TABLET PO SCH ×3 (09:00→19:55)
[2017-04-01 11:23] VITALS: BP 184/92
[2017-04-01] MEDS: CloNIDine HCL 0.2 MG TABLET PO SCH (13:29)
[2017-04-01] MEDS: BUMETANIDE 1 MG TABLET PO SCH ×2 (13:29→19:55)
[2017-04-01] MEDS: ATORVASTATIN CALCIUM 40 MG TABLET PO SCH (13:30)
[2017-04-01] MEDS: ASPIRIN 81 MG CHEWABLE TABLET PO SCH (13:30)
[2017-04-01] MEDS: DOCUSATE SODIUM 100 MG CAPSULE PO SCH ×2 (13:30→19:55)
[2017-04-01] MEDS: VITAMIN B COMP/VIT C/FOLIC ACID CAPSULE PO SCH (13:30)
[2017-04-01] MEDS: ENALAPRIL MALEATE 20 MG TABLET PO SCH (13:30)
[2017-04-01] MEDS: AmLODIPine BESYLATE 10 MG TABLET PO SCH (13:30)
[2017-04-01] MEDS: PANTOPRAZOLE SODIUM 40 MG/VIAL IVP SCH (13:31)
[2017-04-01] MEDS: CHOLECALCIFEROL (VIT D3) 1,000 UNITS TABLET PO SCH (13:31)
[2017-04-01 15:46] VITALS: BP 157/61
[2017-04-01] MEDS ORDERED: SODIUM CHLORIDE 0.9% 500 ML IV ONE (17:09)
[2017-04-01] MEDS: CefTRIAXone 1 GM/DEXTROSE 50 ML IV SCH (17:15)
[2017-04-01 19:22] VITALS: BP 109/56
[2017-04-01] MEDS ORDERED: HEPARIN SODIUM,PORCINE 1,000 UNITS/ML VIAL IVP ONE (20:44)
[2017-04-01 23:23] VITALS: BP 136/59
[2017-04-02 04:35] VITALS: BP 137/63
[2017-04-02] MEDS: NITROGLYCERIN 2% (1 GM=INCH) PACKET TP SCH ×3 (05:44→18:00)
[2017-04-02 07:10] VITALS: BP 134/60
[2017-04-02 07:36] LABS: BASOPHILS # (AUTO) 0.05 K/uL (0.00-0.20); BASOPHILS % (AUTO) 0.7 % (0.0-2.0); EOSINOPHILS # (AUTO) 0.07 K/uL (0.00-0.70); EOSINOPHILS % (AUTO) 1.11 % (1.0-6.0); HEMATOCRIT 25.4 % (36-46); HEMOGLOBIN 8.2 g/dL (12.0-16.0); LYMPHOCYTES # (AUTO) 1.2 K/uL (1.0-4.8); LYMPHOCYTES % (AUTO) 18.1 % (22.0-44.0); MEAN CORPUSCULAR HEMOGLOBIN 30.4 pg (26.0-34.0); MEAN CORPUSCULAR HGB CONC 32.4 G/dL (31.0-37.0); MEAN CORPUSCULAR VOLUME 94 fL (80-100); MONOCYTES # (AUTO) 0.5 K/uL (0.1-1.0); MONOCYTES % (AUTO) 7.8 % (2.0-9.0); NEUTROPHILS # (AUTO) 4.9 K/uL (1.8-7.7); NEUTROPHILS % (AUTO) 72.3 % (40.0-70.0); PLATELET COUNT (AUTO) 234 K/uL (150-450); RED BLOOD CELL COUNT(AUTO) 2.71 MIL/uL (4.00-5.20); RED CELL DISTRIBUTION WIDTH 15.9 % (11.5-14.5)
[2017-04-02 07:47] LABS: CALCIUM, TOTAL 7.5 mg/dL (8.8-10.5); CREATININE 2.92 mg/dL (0.60-1.30); MAGNESIUM 1.7 mg/dL (1.80-2.40); PHOSPHORUS 3.4 mg/dL (2.5-4.9); POTASSIUM 4.2 mmol/L (3.5-5.1)
[2017-04-02] MEDS: BUMETANIDE 1 MG TABLET PO SCH ×2 (08:42→20:15)
[2017-04-02] MEDS: ENALAPRIL MALEATE 20 MG TABLET PO SCH (08:42)
[2017-04-02] MEDS: CHOLECALCIFEROL (VIT D3) 1,000 UNITS TABLET PO SCH (08:42)
[2017-04-02] MEDS: HydrALAZINE HCL 50 MG TABLET PO SCH ×3 (08:42→20:16)
[2017-04-02] MEDS: PANTOPRAZOLE SODIUM 40 MG/VIAL IVP SCH (08:43)
[2017-04-02] MEDS: DOCUSATE SODIUM 100 MG CAPSULE PO SCH ×2 (08:43→20:15)
[2017-04-02] MEDS: ATORVASTATIN CALCIUM 40 MG TABLET PO SCH (08:43)
[2017-04-02] MEDS: VITAMIN B COMP/VIT C/FOLIC ACID CAPSULE PO SCH (08:43)
[2017-04-02] MEDS: ASPIRIN 81 MG CHEWABLE TABLET PO SCH (08:43)
[2017-04-02] MEDS: AmLODIPine BESYLATE 10 MG TABLET PO SCH (08:43)
[2017-04-02] MEDS: CloNIDine HCL 0.2 MG TABLET PO SCH (08:43)
[2017-04-02 11:23] VITALS: BP 138/66
[2017-04-02 15:03] VITALS: BP 112/48
[2017-04-02 16:38] LABS: GLUCOMETER DEV NAME(LOC) 5S 2N; GLUCOSE,POINT OF CARE 164 MG/DL (70-110)
[2017-04-02 16:38] LABS: GLUCOMETER DEV NAME(LOC) 5S 2N; GLUCOSE,POINT OF CARE 135 MG/DL (70-110)
[2017-04-02 16:38] LABS: GLUCOMETER DEV NAME(LOC) 5S 2N; GLUCOSE,POINT OF CARE 121 MG/DL (70-110)
[2017-04-02] MEDS ORDERED: SODIUM CHLORIDE 0.9% 250 ML IV ONE (17:22)
[2017-04-02] MEDS: CefTRIAXone 1 GM/DEXTROSE 50 ML IV SCH (17:24)
[2017-04-02] MEDS ORDERED: BACTDSB PO (18:40)
[2017-04-02 19:30] VITALS: BP 124/53
[2017-04-02 20:12] LABS: GLUCOMETER DEV NAME(LOC) 5S 1L; GLUCOSE,POINT OF CARE 93 MG/DL (70-110)
== END 2017-04-02 20:45 | disposition home or self-care (01) | DRG 689 ==
LOC: EMS 15:37 → 5S 20:27
PROVIDERS: ADMIT Hospitalist; ATTEND Hospitalist
PROC: 5A1D70Z Performance of Urinary Filtration, Intermittent, Less than 6 Hours Per Day (ICD-10-PCS; principal; 2017-04-01)
DX: N39.0 Urinary tract infection, site not specified (principal); N18.6 End stage renal disease; I13.2 Hypertensive heart and chronic kidney disease with heart failure and with stage 5 chronic kidney disease, or end stage renal disease; E11.649 Type 2 diabetes mellitus with hypoglycemia without coma; E11.21 Type 2 diabetes mellitus with diabetic nephropathy; E83.51 Hypocalcemia; R74.8 Abnormal levels of other serum enzymes; D64.9 Anemia, unspecified; E11.22 Type 2 diabetes mellitus with diabetic chronic kidney disease; F41.9 Anxiety disorder, unspecified; I50.9 Heart failure, unspecified; E78.00 Pure hypercholesterolemia, unspecified; E78.5 Hyperlipidemia, unspecified; Z79.4 Long term (current) use of insulin; Z79.82 Long term (current) use of aspirin; Z79.899 Other long term (current) drug therapy; Z83.3 Family history of diabetes mellitus; Z82.49 Family history of ischemic heart disease and other diseases of the circulatory system; Z99.2 Dependence on renal dialysis; Z88.5 Allergy status to narcotic agent; Z91.19 Patient's noncompliance with other medical treatment and regimen
CPT/HCPCS: 70450; 82948; 82962; 83735; 84100; 87081; 87086; 90935; 93005; 93306; 96365; 97110; 97140; 97161; 97165; 97530; 97535; 99285; C9113; J0696; J0885; J1644; J7040; J7050

== ENCOUNTER 2017-09-30 14:00 | Inpatient (IN) | payer MEDICARE, MEDICAID ==
[2017-09-30] VITALS (10 sets, daily range): BP systolic 169–207; BP diastolic 76–118
[~2017-09-30] VITALS: Ht 152.4 cm; Wt 43.9 kg
[~2017-09-30 14:00] MED LIST changes: +BACTDSB PO
[2017-09-30 14:44] LABS: GLUCOSE,POINT OF CARE 128 MG/DL (70-110)
[2017-09-30] MEDS ORDERED: ONDANSETRON HCL 4 MG/2 ML VIAL IVP ONE (14:45)
[2017-09-30 15:04] LABS: EOSINOPHILS % (AUTO) 0.4 % (1.0-6.0); LYMPHOCYTES # (AUTO) 1.4 K/uL (1.0-4.8); LYMPHOCYTES % (AUTO) 18.2 % (22.0-44.0); MEAN CORPUSCULAR HEMOGLOBIN 30.3 pg (26.0-34.0); MEAN CORPUSCULAR HGB CONC 32.8 G/dL (31.0-37.0); MEAN CORPUSCULAR VOLUME 93 fL (80-100); MONOCYTES # (AUTO) 0.3 K/uL (0.1-1.0); MONOCYTES % (AUTO) 3.8 % (2.0-9.0); NEUTROPHILS # (AUTO) 6.1 K/uL (1.8-7.7); NEUTROPHILS % (AUTO) 76.6 % (40.0-70.0); PLATELET COUNT (AUTO) 159 K/uL (150-450); RED CELL DISTRIBUTION WIDTH 16.9 % (11.5-14.5)
[2017-09-30 15:16] LABS: HEMATOCRIT 17.6 % (36-46); HEMOGLOBIN 5.8 g/dL (12.0-16.0)
[2017-09-30 15:37] LABS: ALBUMIN 3.6 g/dL (3.4-5.0); BILIRUBIN,TOTAL 0.5 mg/dL (0.1-1.0); CALCIUM, TOTAL 7.9 mg/dL (8.8-10.5); CKMB RELATIVE INDEX 6.5 % (0.0-4.0); CREATINE KINASE MB 13.1 ng/mL (0-5); CREATININE 6.48 mg/dL (0.60-1.30); POTASSIUM 5.3 mmol/L (3.5-5.1); TOTAL PROTEIN, SERUM 7.5 g/dL (6.4-8.2)
[2017-09-30 15:43] LABS: PATHOLOGY REVIEW, DIFF YES; PLATELET MORPHOLOGY COMMENT LARGE PLTS PRESENT
[2017-09-30] MEDS ORDERED: HEPARIN SODIUM,PORCINE 1,000 UNITS/ML VIAL IVP ONE (16:03)
[2017-09-30] MEDS ORDERED: MAGNESIUM HYDROXIDE SUSPENSION 30 ML UDCUP PO PRN (16:15)
[2017-09-30] MEDS ORDERED: ZOLPIDEM TARTRATE 5 MG TABLET PO PRN (16:15)
[2017-09-30] MEDS ORDERED: BISACODYL 10 MG RECTAL RECTAL SUPPOSITORY PR PRN (16:15)
[2017-09-30] MEDS ORDERED: ALBUTEROL SULFATE HFA 90 MCG/PUFF 8 GM INHALER IH PRN (16:15)
[2017-09-30] MEDS ORDERED: ACETAMINOPHEN 325 MG TABLET PO PRN (16:15)
[2017-09-30 16:40] LABS: INR 1.4 (0.9-1.1)
[2017-09-30] MEDS: DOCUSATE SODIUM 100 MG CAPSULE PO SCH (21:00)
[2017-09-30] MEDS ORDERED: INSULIN GLARGINE,HUM.REC.ANLOG 100 UNITS/ML SQ SCH (21:00)
[2017-09-30] MEDS: EPOETIN ALFA 10,000 UNITS/ML 2 ML VIAL SQ SCH (21:01)
[2017-09-30] MEDS: HydrALAZINE HCL 50 MG TABLET PO SCH (21:01)
[2017-09-30 21:23] LABS: GLUCOSE,POINT OF CARE 82 MG/DL (70-110)
[2017-09-30 22:42] LABS: HEMATOCRIT 27.5 % (36-46)
[2017-09-30 22:43] LABS: HEMOGLOBIN 9.7 g/dL (12.0-16.0)
[2017-09-30] MEDS: ENALAPRIL MALEATE 20 MG TABLET PO SCH (23:56)
[2017-09-30] MEDS: CARVEDILOL 12.5 MG TABLET PO SCH (23:57)
[2017-10-01] VITALS: BP 208/102
[2017-10-01] MEDS ORDERED: HEPARIN SODIUM,PORCINE 5,000 UNITS/ML VIAL SQ SCH
[2017-10-01 04:00] VITALS: BP 176/76
[2017-10-01 05:39] LABS: CALCIUM, TOTAL 7.9 mg/dL (8.8-10.5); CREATININE 2.83 mg/dL (0.60-1.30); POTASSIUM 3.5 mmol/L (3.5-5.1)
[2017-10-01] MEDS: ENALAPRIL MALEATE 20 MG TABLET PO SCH ×2 (05:48→22:21)
[2017-10-01] MEDS: HydrALAZINE HCL 20 MG/ML VIAL IVP PRN (05:48)
[2017-10-01 06:29] LABS: BASOPHILS % (AUTO) 1.1 % (0.0-2.0); EOSINOPHILS % (AUTO) 1.3 % (1.0-6.0); HEMATOCRIT 23.9 % (36-46); HEMOGLOBIN 8.6 g/dL (12.0-16.0); LYMPHOCYTES # (AUTO) 0.9 K/uL (1.0-4.8); LYMPHOCYTES % (AUTO) 13.9 % (22.0-44.0); MEAN CORPUSCULAR HEMOGLOBIN 31.4 pg (26.0-34.0); MEAN CORPUSCULAR HGB CONC 35.8 G/dL (31.0-37.0); MEAN CORPUSCULAR VOLUME 88 fL (80-100); MONOCYTES # (AUTO) 0.6 K/uL (0.1-1.0); MONOCYTES % (AUTO) 9.6 % (2.0-9.0); NEUTROPHILS # (AUTO) 4.6 K/uL (1.8-7.7); NEUTROPHILS % (AUTO) 74.1 % (40.0-70.0); PLATELET COUNT (AUTO) 122 K/uL (150-450); RED BLOOD CELL COUNT(AUTO) 2.73 MIL/uL (4.00-5.20); RED CELL DISTRIBUTION WIDTH 14.8 % (11.5-14.5)
[2017-10-01 08:00] VITALS: BP 144/65
[2017-10-01] MEDS: NIFEdipine 60 MG ER TABLET PO SCH (08:58)
[2017-10-01] MEDS: VITAMIN B COMP/VIT C/FOLIC ACID CAPSULE PO SCH (08:58)
[2017-10-01] MEDS: HydrALAZINE HCL 50 MG TABLET PO SCH ×3 (08:58→21:28)
[2017-10-01] MEDS: ATORVASTATIN CALCIUM 40 MG TABLET PO SCH (08:58)
[2017-10-01] MEDS: CHOLECALCIFEROL (VIT D3) 1,000 UNITS TABLET PO SCH (08:59)
[2017-10-01] MEDS: ASPIRIN 81 MG CHEWABLE TABLET PO SCH (08:59)
[2017-10-01] MEDS: CARVEDILOL 12.5 MG TABLET PO SCH ×2 (08:59→21:28)
[2017-10-01] MEDS ORDERED: PANTOPRAZOLE SODIUM 40 MG DR TABLET PO SCH ×2 (09:00→21:00)
[2017-10-01] MEDS ORDERED: CloNIDine HCL 0.2 MG TABLET PO SCH (09:00)
[2017-10-01] MEDS ORDERED: ALLOPURINOL 100 MG TABLET PO SCH (09:00)
[2017-10-01] MEDS: DOCUSATE SODIUM 100 MG CAPSULE PO SCH ×2 (09:00→21:00)
[2017-10-01] MEDS ORDERED: ENALAPRIL MALEATE 20 MG TABLET PO SCH (09:00)
[2017-10-01] MEDS ORDERED: AmLODIPine BESYLATE 10 MG TABLET PO SCH (09:00)
[2017-10-01] MEDS: FLUTICASONE/VILANTEROL 200-25 MCG/INH INHALER [14] IH SCH (09:02)
[2017-10-01] MEDS ORDERED: PANTOPRAZOLE SODIUM 40 MG/VIAL IVP ONE (11:45)
[2017-10-01 12:00] VITALS: BP 126/45
[2017-10-01] MEDS: ONDANSETRON HCL 4 MG/2 ML VIAL IVP PRN (12:01)
[2017-10-01] MEDS: PANTOPRAZOLE SODIUM 80 MG in SODIUM CHLORIDE 0.9% 100 ML IV SCH ×2 (12:10→20:57)
[2017-10-01] MEDS: PHYTONADIONE 10 MG/1 ML AMP SQ SCH (14:49)
[2017-10-01 16:00] VITALS: BP 107/46
[2017-10-01 20:00] VITALS: BP 126/46
[2017-10-01] MEDS: INSULIN GLARGINE,HUM.REC.ANLOG 100 UNITS/ML SQ SCH (21:20)
[2017-10-01] MEDS ORDERED: DEXTROSE 5%-0.45% SODIUM CHL 1,000 ML IV PRN (23:55)
[2017-10-02] VITALS: BP 92/45
[2017-10-02 04:00] VITALS: BP 102/43
[2017-10-02 06:19] LABS: BASOPHILS % (AUTO) 1.3 % (0.0-2.0); HEMATOCRIT 21.2 % (36-46); HEMOGLOBIN 7.8 g/dL (12.0-16.0); LYMPHOCYTES % (AUTO) 16.9 % (22.0-44.0); MEAN CORPUSCULAR HEMOGLOBIN 32.2 pg (26.0-34.0); MEAN CORPUSCULAR HGB CONC 36.5 G/dL (31.0-37.0); MEAN CORPUSCULAR VOLUME 88 fL (80-100); MONOCYTES # (AUTO) 0.6 K/uL (0.1-1.0); MONOCYTES % (AUTO) 9.8 % (2.0-9.0); NEUTROPHILS # (AUTO) 4.1 K/uL (1.8-7.7); PLATELET COUNT (AUTO) 154 K/uL (150-450); RED BLOOD CELL COUNT(AUTO) 2.41 MIL/uL (4.00-5.20); RED CELL DISTRIBUTION WIDTH 15.2 % (11.5-14.5)
[2017-10-02 06:44] LABS: GLUCOSE,POINT OF CARE 104 MG/DL (70-110)
[2017-10-02 06:44] LABS: GLUCOSE,POINT OF CARE 72 MG/DL (70-110)
[2017-10-02] MEDS: PANTOPRAZOLE SODIUM 80 MG in SODIUM CHLORIDE 0.9% 100 ML IV SCH (07:07)
[2017-10-02 08:00] VITALS: BP 122/47
[2017-10-02] MEDS ORDERED: SODIUM CHLORIDE 0.9% 2,000 ML IV ONE (08:08)
[2017-10-02] MEDS: ASPIRIN 81 MG CHEWABLE TABLET PO SCH (09:00)
[2017-10-02] MEDS: DOCUSATE SODIUM 100 MG CAPSULE PO SCH ×2 (09:00→21:23)
[2017-10-02] MEDS: NIFEdipine 60 MG ER TABLET PO SCH (09:00)
[2017-10-02] MEDS: FLUTICASONE/VILANTEROL 200-25 MCG/INH INHALER [14] IH SCH (09:11)
[2017-10-02] MEDS: EPOETIN ALFA 10,000 UNITS/ML 2 ML VIAL SQ SCH (09:14)
[2017-10-02] MEDS ORDERED: HEPARIN SODIUM,PORCINE 1,000 UNITS/ML VIAL IVP ONE ×3 (09:30→17:12)
[2017-10-02] MEDS ORDERED: MANNITOL 25%-12.5 GM/50 ML VIAL IVP PRN (09:30)
[2017-10-02 09:33] LABS: CALCIUM, TOTAL 7.6 mg/dL (8.8-10.5); CREATININE 4.26 mg/dL (0.60-1.30); POTASSIUM 3.9 mmol/L (3.5-5.1)
[2017-10-02] MEDS ORDERED: SODIUM CHLORIDE 0.9% 1,000 ML IV ONE (10:27)
[2017-10-02] MEDS ORDERED: DEXTROSE 50%-WATER 25 GM/50 ML SYRINGE IVP PRN (11:45)
[2017-10-02 12:00] VITALS: BP 130/74
[2017-10-02] MEDS ORDERED: LIDOCAINE HCL/PF 2% 5 ML VIAL INJ ONE (12:00)
[2017-10-02] MEDS ORDERED: PROPOFOL 1% 20 ML VIAL IVP ONE (12:00)
[2017-10-02 12:19] LABS: GLUCOSE,POINT OF CARE 75 MG/DL (70-110)
[2017-10-02] MEDS: HydrALAZINE HCL 50 MG TABLET PO SCH ×3 (14:07→21:00)
[2017-10-02] MEDS: CHOLECALCIFEROL (VIT D3) 1,000 UNITS TABLET PO SCH (14:07)
[2017-10-02] MEDS: VITAMIN B COMP/VIT C/FOLIC ACID CAPSULE PO SCH (14:07)
[2017-10-02] MEDS: PHYTONADIONE 10 MG/1 ML AMP SQ SCH (14:07)
[2017-10-02] MEDS: ATORVASTATIN CALCIUM 40 MG TABLET PO SCH (14:07)
[2017-10-02] MEDS: CARVEDILOL 12.5 MG TABLET PO SCH ×2 (14:08→21:24)
[2017-10-02] MEDS: ONDANSETRON HCL 4 MG/2 ML VIAL IVP PRN ×2 (14:16→20:42)
[2017-10-02 15:02] LABS: HEMATOCRIT 22.6 % (36-46); HEMOGLOBIN 7.9 g/dL (12.0-16.0)
[2017-10-02 15:22] LABS: INR 1.1 (0.9-1.1); PROTHROMBIN TIME 11.9 SEC (9.4-11.6)
[2017-10-02 16:00] VITALS: BP 123/47
[2017-10-02] MEDS ORDERED: PEG 3350/NA SULF,BICARB,CL/KCL 4000 ML SOLUTION PO ONE (16:00)
[2017-10-02] MEDS: INSULIN LISPRO 100 UNITS/ML SQ PRN (16:44)
[2017-10-02 17:44] LABS: GLUCOSE,POINT OF CARE 148 MG/DL (70-110)
[2017-10-02 20:13] VITALS: BP 125/51
[2017-10-02] MEDS: INSULIN GLARGINE,HUM.REC.ANLOG 100 UNITS/ML SQ SCH (21:00)
[2017-10-03 00:29] VITALS: BP 149/48
[2017-10-03 04:55] VITALS: BP 148/60
[2017-10-03 06:02] LABS: BASOPHILS % (AUTO) 0.6 % (0.0-2.0); EOSINOPHILS % (AUTO) 0.6 % (1.0-6.0); HEMOGLOBIN 7.2 g/dL (12.0-16.0); LYMPHOCYTES # (AUTO) 0.9 K/uL (1.0-4.8); LYMPHOCYTES % (AUTO) 10.2 % (22.0-44.0); MEAN CORPUSCULAR HEMOGLOBIN 31.6 pg (26.0-34.0); MEAN CORPUSCULAR HGB CONC 35.4 G/dL (31.0-37.0); MEAN CORPUSCULAR VOLUME 89 fL (80-100); MONOCYTES # (AUTO) 0.8 K/uL (0.1-1.0); NEUTROPHILS # (AUTO) 7.3 K/uL (1.8-7.7); NEUTROPHILS % (AUTO) 79.6 % (40.0-70.0); PLATELET COUNT (AUTO) 173 K/uL (150-450); RED BLOOD CELL COUNT(AUTO) 2.28 MIL/uL (4.00-5.20); RED CELL DISTRIBUTION WIDTH 15.5 % (11.5-14.5)
[2017-10-03 06:17] LABS: CALCIUM, TOTAL 7.4 mg/dL (8.8-10.5); CREATININE 2.42 mg/dL (0.60-1.30); MAGNESIUM 1.6 mg/dL (1.80-2.40); PHOSPHORUS 3.2 mg/dL (2.5-4.9)
[2017-10-03 07:47] VITALS: BP 159/57
[2017-10-03] MEDS: CARVEDILOL 12.5 MG TABLET PO SCH ×2 (07:59→20:39)
[2017-10-03] MEDS: ATORVASTATIN CALCIUM 40 MG TABLET PO SCH (07:59)
[2017-10-03] MEDS: FLUTICASONE/VILANTEROL 200-25 MCG/INH INHALER [14] IH SCH (07:59)
[2017-10-03] MEDS: NIFEdipine 60 MG ER TABLET PO SCH (07:59)
[2017-10-03] MEDS: VITAMIN B COMP/VIT C/FOLIC ACID CAPSULE PO SCH (07:59)
[2017-10-03] MEDS: HydrALAZINE HCL 50 MG TABLET PO SCH ×3 (07:59→20:37)
[2017-10-03] MEDS: CHOLECALCIFEROL (VIT D3) 1,000 UNITS TABLET PO SCH (07:59)
[2017-10-03] MEDS: PHYTONADIONE 10 MG/1 ML AMP SQ SCH (08:00)
[2017-10-03] MEDS: DOCUSATE SODIUM 100 MG CAPSULE PO SCH ×2 (08:00→20:36)
[2017-10-03 11:10] VITALS: BP 136/53
[2017-10-03] MEDS ORDERED: MAGNESIUM OXIDE 400 MG TABLET PO ONE (12:45)
[2017-10-03] MEDS: ONDANSETRON HCL 4 MG/2 ML VIAL IVP PRN (15:23)
[2017-10-03 16:08] VITALS: BP 156/66
[2017-10-03 17:25] LABS: HEMATOCRIT 21.3 % (36-46); HEMOGLOBIN 7.3 g/dL (12.0-16.0)
[2017-10-03 19:25] VITALS: BP 159/46
[2017-10-03] MEDS: INSULIN GLARGINE,HUM.REC.ANLOG 100 UNITS/ML SQ SCH (20:35)
[2017-10-04] VITALS (16 sets, daily range): BP systolic 106–184; BP diastolic 44–82
[2017-10-04 02:34] LABS: GLUCOMETER DEV NAME(LOC) 5S 1M; GLUCOSE,POINT OF CARE 82 MG/DL (70-110)
[2017-10-04 02:34] LABS: GLUCOMETER DEV NAME(LOC) 5S 1M; GLUCOSE,POINT OF CARE 75 MG/DL (70-110)
[2017-10-04 02:39] LABS: GLUCOMETER DEV NAME(LOC) 5N 2S; GLUCOSE,POINT OF CARE 101 MG/DL (70-110)
[2017-10-04 02:39] LABS: GLUCOMETER DEV NAME(LOC) 5N 2S; GLUCOSE,POINT OF CARE 84 MG/DL (70-110)
[2017-10-04 06:14] LABS: BASOPHILS % (AUTO) 1.3 % (0.0-2.0); EOSINOPHILS % (AUTO) 2.1 % (1.0-6.0); HEMATOCRIT 21.1 % (36-46); HEMOGLOBIN 7.4 g/dL (12.0-16.0); LYMPHOCYTES # (AUTO) 1.1 K/uL (1.0-4.8); LYMPHOCYTES % (AUTO) 17.1 % (22.0-44.0); MEAN CORPUSCULAR HEMOGLOBIN 31.7 pg (26.0-34.0); MEAN CORPUSCULAR HGB CONC 34.8 G/dL (31.0-37.0); MEAN CORPUSCULAR VOLUME 91 fL (80-100); MONOCYTES # (AUTO) 0.6 K/uL (0.1-1.0); MONOCYTES % (AUTO) 9.1 % (2.0-9.0); NEUTROPHILS # (AUTO) 4.4 K/uL (1.8-7.7); NEUTROPHILS % (AUTO) 70.4 % (40.0-70.0); PLATELET COUNT (AUTO) 218 K/uL (150-450); RED BLOOD CELL COUNT(AUTO) 2.32 MIL/uL (4.00-5.20); RED CELL DISTRIBUTION WIDTH 15.4 % (11.5-14.5)
[2017-10-04 06:46] LABS: CALCIUM, TOTAL 7.6 mg/dL (8.8-10.5); CREATININE 3.74 mg/dL (0.60-1.30); MAGNESIUM 1.9 mg/dL (1.80-2.40); POTASSIUM 4.4 mmol/L (3.5-5.1)
[2017-10-04] MEDS ORDERED: SODIUM CHLORIDE 0.9% 2,000 ML IV ONE (08:26)
[2017-10-04] MEDS: CARVEDILOL 12.5 MG TABLET PO SCH ×2 (09:00→20:45)
[2017-10-04] MEDS: HydrALAZINE HCL 50 MG TABLET PO SCH ×3 (09:38→20:45)
[2017-10-04] MEDS: HydrALAZINE HCL 20 MG/ML VIAL IVP PRN (12:02)
[2017-10-04] MEDS: ATORVASTATIN CALCIUM 40 MG TABLET PO SCH (12:07)
[2017-10-04] MEDS: PHYTONADIONE 10 MG/1 ML AMP SQ SCH (12:07)
[2017-10-04] MEDS: VITAMIN B COMP/VIT C/FOLIC ACID CAPSULE PO SCH (12:08)
[2017-10-04] MEDS: DOCUSATE SODIUM 100 MG CAPSULE PO SCH ×2 (12:08→20:45)
[2017-10-04] MEDS: CHOLECALCIFEROL (VIT D3) 1,000 UNITS TABLET PO SCH (12:08)
[2017-10-04] MEDS: FLUTICASONE/VILANTEROL 200-25 MCG/INH INHALER [14] IH SCH (12:08)
[2017-10-04] MEDS: EPOETIN ALFA 10,000 UNITS/ML 2 ML VIAL SQ SCH (12:09)
[2017-10-04] MEDS ORDERED: SODIUM CHLORIDE 0.9% 1,000 ML IV ONE (13:05)
[2017-10-04] MEDS: NIFEdipine 60 MG ER TABLET PO SCH (14:44)
[2017-10-04 15:44] LABS: GLUCOMETER DEV NAME(LOC) 5S 1M; GLUCOSE,POINT OF CARE 74 MG/DL (70-110)
[2017-10-04 16:05] LABS: GLUCOMETER DEV NAME(LOC) 5S 2Q; GLUCOSE,POINT OF CARE 102 MG/DL (70-110)
[2017-10-04] MEDS: INSULIN LISPRO 100 UNITS/ML SQ PRN ×2 (18:03→20:47)
[2017-10-04] MEDS: INSULIN GLARGINE,HUM.REC.ANLOG 100 UNITS/ML SQ SCH (20:52)
[2017-10-04] MEDS ORDERED: HEPARIN SODIUM,PORCINE 1,000 UNITS/ML VIAL IVP ONE (22:03)
[2017-10-05 00:08] VITALS: BP 122/53
[2017-10-05 00:48] LABS: GLUCOMETER DEV NAME(LOC) 5N 1P; GLUCOSE,POINT OF CARE 86 MG/DL (70-110)
[2017-10-05 00:49] LABS: GLUCOMETER DEV NAME(LOC) 5S 1M; GLUCOSE,POINT OF CARE 156 MG/DL (70-110)
[2017-10-05 00:49] LABS: GLUCOMETER DEV NAME(LOC) 5S 1M; GLUCOSE,POINT OF CARE 191 MG/DL (70-110)
[2017-10-05 04:24] VITALS: BP 120/51
[2017-10-05 06:15] LABS: BASOPHILS % (AUTO) 0.8 % (0.0-2.0); EOSINOPHILS % (AUTO) 1.4 % (1.0-6.0); HEMATOCRIT 27.2 % (36-46); HEMOGLOBIN 9.5 g/dL (12.0-16.0); LYMPHOCYTES # (AUTO) 1.2 K/uL (1.0-4.8); LYMPHOCYTES % (AUTO) 14.7 % (22.0-44.0); MEAN CORPUSCULAR HEMOGLOBIN 31.1 pg (26.0-34.0); MEAN CORPUSCULAR HGB CONC 34.9 G/dL (31.0-37.0); MEAN CORPUSCULAR VOLUME 89 fL (80-100); MONOCYTES # (AUTO) 0.7 K/uL (0.1-1.0); MONOCYTES % (AUTO) 8.5 % (2.0-9.0); NEUTROPHILS # (AUTO) 5.9 K/uL (1.8-7.7); NEUTROPHILS % (AUTO) 74.6 % (40.0-70.0); PLATELET COUNT (AUTO) 198 K/uL (150-450); RED BLOOD CELL COUNT(AUTO) 3.05 MIL/uL (4.00-5.20); RED CELL DISTRIBUTION WIDTH 16.2 % (11.5-14.5)
[2017-10-05 06:39] LABS: CALCIUM, TOTAL 7.4 mg/dL (8.8-10.5); CREATININE 3.43 mg/dL (0.60-1.30); POTASSIUM 4.1 mmol/L (3.5-5.1)
[2017-10-05 07:03] VITALS: BP 129/62
[2017-10-05] MEDS: CHOLECALCIFEROL (VIT D3) 1,000 UNITS TABLET PO SCH (08:57)
[2017-10-05] MEDS: VITAMIN B COMP/VIT C/FOLIC ACID CAPSULE PO SCH (08:57)
[2017-10-05] MEDS: FLUTICASONE/VILANTEROL 200-25 MCG/INH INHALER [14] IH SCH (08:57)
[2017-10-05] MEDS: CARVEDILOL 12.5 MG TABLET PO SCH (08:57)
[2017-10-05] MEDS: DOCUSATE SODIUM 100 MG CAPSULE PO SCH (08:57)
[2017-10-05] MEDS: ATORVASTATIN CALCIUM 40 MG TABLET PO SCH (08:57)
[2017-10-05] MEDS: NIFEdipine 60 MG ER TABLET PO SCH (08:57)
[2017-10-05] MEDS: PHYTONADIONE 10 MG/1 ML AMP SQ SCH (08:58)
[2017-10-05] MEDS: HydrALAZINE HCL 50 MG TABLET PO SCH (10:33)
[2017-10-05 10:50] VITALS: BP 156/47
[2017-10-05 21:49] LABS: GLUCOMETER DEV NAME(LOC) 5N 1P; GLUCOSE,POINT OF CARE 95 MG/DL (70-110)
[2017-10-05 21:49] LABS: GLUCOMETER DEV NAME(LOC) 5N 1P; GLUCOSE,POINT OF CARE 129 MG/DL (70-110)
== END 2017-10-05 14:00 | disposition home or self-care (01) | DRG 377 ==
LOC: EMS 14:10 → ICU 17:00 → 5S 10-02 20:00
PROVIDERS: ADMIT Internal Medicine; ATTEND Internal Medicine
PROC: 30233N1 Transfusion of Nonautologous Red Blood Cells into Peripheral Vein, Percutaneous Approach (ICD-10-PCS; principal; 2017-09-30)
PROC: 5A1D70Z Performance of Urinary Filtration, Intermittent, Less than 6 Hours Per Day (ICD-10-PCS; 2017-09-30)
PROC: 0DJ08ZZ Inspection of Upper Intestinal Tract, Via Natural or Artificial Opening Endoscopic (ICD-10-PCS; 2017-10-02)
PROC: 05HY33Z Insertion of Infusion Device into Upper Vein, Percutaneous Approach (ICD-10-PCS; 2017-10-02)
PROC: B54NZZA Ultrasonography of Left Upper Extremity Veins, Guidance (ICD-10-PCS; 2017-10-02)
PROC: 5A1D70Z Performance of Urinary Filtration, Intermittent, Less than 6 Hours Per Day (ICD-10-PCS; 2017-10-02)
PROC: 5A1D70Z Performance of Urinary Filtration, Intermittent, Less than 6 Hours Per Day (ICD-10-PCS; 2017-10-04)
DX: K29.01 Acute gastritis with bleeding (principal); N18.6 End stage renal disease; E43 Unspecified severe protein-calorie malnutrition; I13.2 Hypertensive heart and chronic kidney disease with heart failure and with stage 5 chronic kidney disease, or end stage renal disease; I50.32 Chronic diastolic (congestive) heart failure; Z68.1 Body mass index [BMI] 19.9 or less, adult; K92.1 Melena; E87.5 Hyperkalemia; I16.0 Hypertensive urgency; D63.8 Anemia in other chronic diseases classified elsewhere; E11.21 Type 2 diabetes mellitus with diabetic nephropathy; E11.22 Type 2 diabetes mellitus with diabetic chronic kidney disease; E11.319 Type 2 diabetes mellitus with unspecified diabetic retinopathy without macular edema; E55.9 Vitamin D deficiency, unspecified; E78.00 Pure hypercholesterolemia, unspecified; D69.6 Thrombocytopenia, unspecified; F41.9 Anxiety disorder, unspecified; E78.5 Hyperlipidemia, unspecified; I25.10 Atherosclerotic heart disease of native coronary artery without angina pectoris; Z79.4 Long term (current) use of insulin; Z99.2 Dependence on renal dialysis; Z79.82 Long term (current) use of aspirin; Z79.899 Other long term (current) drug therapy; Z91.19 Patient's noncompliance with other medical treatment and regimen
CPT/HCPCS: 36245; 36430; 36569; 76937; 82270; 82271; 83735; 84100; 85014; 85018; 86706; 86709; 86850; 86900; 86901; 86920; 87081; 87340; 93005; 96374; 99291; C9113; J0360; J0885; J1644; J1815; J2405; J2704; J3430; J3490; J7030; J7050; P9016

== ENCOUNTER 2017-12-25 10:53 | Inpatient (IN) | payer MEDICARE, MEDICAID ==
[~2017-12-25] VITALS: Ht 170.2 cm; Wt 52.1 kg
[~2017-12-25 10:53] MED LIST changes: -ALLO100T PO; -BACTDSB PO; -BUME1TAB17 PO; -CLON.2 PO; -ENAL20 PO; -INSLAN SQ; -TIOT185 IH
[2017-12-25] MEDS ORDERED: ALLO100T PO (11:07)
[2017-12-25] MEDS ORDERED: APIX2.5T PO (11:07)
[2017-12-25] MEDS ORDERED: CARV6 PO (11:07)
[2017-12-25] MEDS ORDERED: CLON-570 PO (11:07)
[2017-12-25 11:09] LABS: GLUCOSE,POINT OF CARE 376 MG/DL (70-110)
[2017-12-25] MEDS ORDERED: ASPIRIN 81 MG CHEWABLE TABLET PO ONE (11:15)
[2017-12-25] MEDS ORDERED: HydrALAZINE HCL 20 MG/ML VIAL IVP ONE ×2 (11:15→13:00)
[2017-12-25] MEDS ORDERED: NITROGLYCERIN 400 MCG/SUBLINGUAL SPRAY 4.9 GM BOTTLE SL ONE (11:15)
[2017-12-25 12:05] LABS: BASOPHILS % (AUTO) 1.5 % (0.0-2.0); EOSINOPHILS % (AUTO) 1.3 % (1.0-6.0); HEMATOCRIT 34.9 % (36-46); HEMOGLOBIN 11.3 g/dL (12.0-16.0); LYMPHOCYTES # (AUTO) 1.2 K/uL (1.0-4.8); LYMPHOCYTES % (AUTO) 18.6 % (22.0-44.0); MEAN CORPUSCULAR HEMOGLOBIN 28.4 pg (26.0-34.0); MEAN CORPUSCULAR HGB CONC 32.5 G/dL (31.0-37.0); MEAN CORPUSCULAR VOLUME 88 fL (80-100); MONOCYTES # (AUTO) 0.6 K/uL (0.1-1.0); MONOCYTES % (AUTO) 9.4 % (2.0-9.0); NEUTROPHILS # (AUTO) 4.3 K/uL (1.8-7.7); NEUTROPHILS % (AUTO) 69.2 % (40.0-70.0); PLATELET COUNT (AUTO) 137 K/uL (150-450); RED BLOOD CELL COUNT(AUTO) 3.98 MIL/uL (4.00-5.20); RED CELL DISTRIBUTION WIDTH 17.1 % (11.5-14.5)
[2017-12-25 12:27] LABS: ALBUMIN 3.6 g/dL (3.4-5.0); BILIRUBIN,TOTAL 0.7 mg/dL (0.1-1.0); CALCIUM, TOTAL 8.8 mg/dL (8.8-10.5); CREATININE 6.26 mg/dL (0.60-1.30); POTASSIUM 3.8 mmol/L (3.5-5.1); TOTAL PROTEIN, SERUM 7.7 g/dL (6.4-8.2)
[2017-12-25] MEDS ORDERED: ACETAMINOPHEN 325 MG TABLET PO PRN (13:15)
[2017-12-25] MEDS ORDERED: ONDANSETRON HCL 4 MG/2 ML VIAL IVP PRN (13:15)
[2017-12-25] MEDS: NIFEdipine 60 MG ER TABLET PO SCH (16:15)
[2017-12-25 16:59] VITALS: BP 154/83
[2017-12-25] MEDS ORDERED: VITAMIN B COMP/VIT C/FOLIC ACID CAPSULE PO SCH (18:00)
[2017-12-25] MEDS: VITAMIN B COMP/VIT C/FOLIC ACID CAPSULE PO SCH (18:00)
[2017-12-25] MEDS ORDERED: DEXTROSE 50%-WATER 25 GM/50 ML SYG IVP PRN (19:15)
[2017-12-25] MEDS ORDERED: NIFEdipine 60 MG ER TABLET PO SCH (19:15)
[2017-12-25] MEDS ORDERED: HydrALAZINE HCL 20 MG/ML VIAL IVP PRN (19:15)
[2017-12-25] MEDS ORDERED: GLUCAGON,HUMAN RECOMBINANT 1 MG VIAL IM PRN (19:15)
[2017-12-25 19:45] VITALS: BP 140/75
[2017-12-25 19:54] LABS: GLUCOMETER DEV NAME(LOC) 5S 2Q; GLUCOSE,POINT OF CARE 114 MG/DL (70-110)
[2017-12-25] MEDS: APIXABAN 2.5 MG TABLET PO SCH (20:48)
[2017-12-25] MEDS: CHOLECALCIFEROL (VIT D3) 1,000 UNITS TABLET PO SCH (20:48)
[2017-12-25] MEDS: ASPIRIN 81 MG CHEWABLE TABLET PO SCH (20:48)
[2017-12-25] MEDS: CARVEDILOL 6.25 MG TABLET PO SCH (20:48)
[2017-12-25] MEDS: ENALAPRIL MALEATE 20 MG TABLET PO SCH (20:50)
[2017-12-25] MEDS ORDERED: ENALAPRIL MALEATE 20 MG TABLET PO SCH (21:00)
[2017-12-25 21:43] LABS: GLUCOMETER DEV NAME(LOC) 5S 2Q; GLUCOSE,POINT OF CARE 119 MG/DL (70-110)
[2017-12-26] VITALS (8 sets, daily range): BP systolic 105–145; BP diastolic 53–79
[2017-12-26] MEDS: INSULIN LISPRO 100 UNITS/ML SQ PRN ×2 (05:47→18:11)
[2017-12-26 06:09] LABS: GLUCOMETER DEV NAME(LOC) 5N 1P; GLUCOSE,POINT OF CARE 174 MG/DL (70-110)
[2017-12-26] MEDS: ASPIRIN 81 MG CHEWABLE TABLET PO SCH (09:09)
[2017-12-26] MEDS: APIXABAN 2.5 MG TABLET PO SCH ×2 (09:10→20:29)
[2017-12-26] MEDS: CARVEDILOL 6.25 MG TABLET PO SCH ×2 (09:10→20:29)
[2017-12-26] MEDS: CHOLECALCIFEROL (VIT D3) 1,000 UNITS TABLET PO SCH (09:10)
[2017-12-26] MEDS: ENALAPRIL MALEATE 20 MG TABLET PO SCH ×2 (09:10→20:29)
[2017-12-26] MEDS ORDERED: HEPARIN SODIUM,PORCINE 1,000 UNITS/ML VIAL IVP ONE (12:00)
[2017-12-26] MEDS: VITAMIN B COMP/VIT C/FOLIC ACID CAPSULE PO SCH (18:10)
[2017-12-26] MEDS: NIFEdipine 60 MG ER TABLET PO SCH (18:10)
[2017-12-26 20:05] LABS: GLUCOMETER DEV NAME(LOC) 5N 1P; GLUCOSE,POINT OF CARE 105 MG/DL (70-110)
[2017-12-26 20:06] LABS: GLUCOMETER DEV NAME(LOC) 5S 1M; GLUCOSE,POINT OF CARE 230 MG/DL (70-110)
[2017-12-27 05:34] VITALS: BP 116/55
[2017-12-27 06:50] LABS: BASOPHILS % (AUTO) 1.1 % (0.0-2.0); EOSINOPHILS % (AUTO) 3.1 % (1.0-6.0); HEMATOCRIT 35.6 % (36-46); HEMOGLOBIN 11.7 g/dL (12.0-16.0); LYMPHOCYTES # (AUTO) 0.9 K/uL (1.0-4.8); LYMPHOCYTES % (AUTO) 16.6 % (22.0-44.0); MEAN CORPUSCULAR HEMOGLOBIN 28.8 pg (26.0-34.0); MEAN CORPUSCULAR HGB CONC 32.8 G/dL (31.0-37.0); MEAN CORPUSCULAR VOLUME 88 fL (80-100); MONOCYTES # (AUTO) 0.5 K/uL (0.1-1.0); MONOCYTES % (AUTO) 8.5 % (2.0-9.0); NEUTROPHILS # (AUTO) 3.8 K/uL (1.8-7.7); NEUTROPHILS % (AUTO) 70.7 % (40.0-70.0); PLATELET COUNT (AUTO) 134 K/uL (150-450); RED BLOOD CELL COUNT(AUTO) 4.05 MIL/uL (4.00-5.20); RED CELL DISTRIBUTION WIDTH 17.1 % (11.5-14.5)
[2017-12-27 07:04] VITALS: BP 126/53
[2017-12-27 07:10] LABS: CALCIUM, TOTAL 8.6 mg/dL (8.8-10.5); CREATININE 4.33 mg/dL (0.60-1.30); POTASSIUM 3.6 mmol/L (3.5-5.1)
[2017-12-27] MEDS ORDERED: SODIUM CHLORIDE 0.9% 2,000 ML IV ONE (07:43)
[2017-12-27 09:00] LABS: GLUCOMETER DEV NAME(LOC) 5S 1M; GLUCOSE,POINT OF CARE 98 MG/DL (70-110)
[2017-12-27] MEDS: ENALAPRIL MALEATE 20 MG TABLET PO SCH (09:00)
[2017-12-27] MEDS: APIXABAN 2.5 MG TABLET PO SCH (09:00)
[2017-12-27] MEDS: CARVEDILOL 6.25 MG TABLET PO SCH (09:00)
[2017-12-27 11:08] VITALS: BP 132/48
[2017-12-27] MEDS ORDERED: HEPARIN SODIUM,PORCINE 1,000 UNITS/ML VIAL IVP ONE (12:00)
[2017-12-27] MEDS: ASPIRIN 81 MG CHEWABLE TABLET PO SCH (14:25)
[2017-12-27] MEDS: CHOLECALCIFEROL (VIT D3) 1,000 UNITS TABLET PO SCH (14:25)
[2017-12-27 15:36] VITALS: BP 137/55
[2017-12-29 14:49] LABS: GLUCOMETER DEV NAME(LOC) 5N 2S; GLUCOSE,POINT OF CARE 110 MG/DL (70-110)
[2017-12-29 14:49] LABS: GLUCOMETER DEV NAME(LOC) 5N 2S; GLUCOSE,POINT OF CARE 158 MG/DL (70-110)
== END 2017-12-27 16:50 | disposition home or self-care (01) | DRG 291 ==
LOC: EMS 10:54 → 5S 15:41 → EMS 16:35
PROVIDERS: ADMIT Hospitalist; ATTEND Hospitalist
PROC: 5A1D70Z Performance of Urinary Filtration, Intermittent, Less than 6 Hours Per Day (ICD-10-PCS; principal; 2017-12-26)
PROC: 5A1D70Z Performance of Urinary Filtration, Intermittent, Less than 6 Hours Per Day (ICD-10-PCS; 2017-12-27)
DX: I13.2 Hypertensive heart and chronic kidney disease with heart failure and with stage 5 chronic kidney disease, or end stage renal disease (principal); N18.6 End stage renal disease; I16.0 Hypertensive urgency; E11.319 Type 2 diabetes mellitus with unspecified diabetic retinopathy without macular edema; D64.9 Anemia, unspecified; E11.22 Type 2 diabetes mellitus with diabetic chronic kidney disease; E11.65 Type 2 diabetes mellitus with hyperglycemia; E55.9 Vitamin D deficiency, unspecified; E78.00 Pure hypercholesterolemia, unspecified; E78.5 Hyperlipidemia, unspecified; I07.1 Rheumatic tricuspid insufficiency; I48.0 Paroxysmal atrial fibrillation; I49.5 Sick sinus syndrome; I50.9 Heart failure, unspecified; Z91.19 Patient's noncompliance with other medical treatment and regimen; Z95.0 Presence of cardiac pacemaker; Z88.6 Allergy status to analgesic agent; Z79.01 Long term (current) use of anticoagulants; Z79.82 Long term (current) use of aspirin; Z79.899 Other long term (current) drug therapy; Z82.49 Family history of ischemic heart disease and other diseases of the circulatory system; Z83.3 Family history of diabetes mellitus
CPT/HCPCS: 86709; 87081; 87340; 93005; 93306; 96374; 96376; 99291; J0360; J1644; J7030

== ENCOUNTER 2018-03-22 21:24 | Inpatient (IN) | payer MEDICARE, MEDICAID ==
[~2018-03-22] VITALS: Ht 154.9 cm; Wt 52.0 kg
[~2018-03-22 21:24] MED LIST changes: -ACET-2902 PO; -ADV100 IH; -AMLO-512 PO; +APIX2.5T PO; -ATOR40TA28 PO; +CARV6 PO; -HYDR-2924 PO; -INSU100I15 SQ; -OMEG-11 PO
[2018-03-22] MEDS ORDERED: FOLI0.8T22 PO (21:32)
[2018-03-22] MEDS ORDERED: HYDR-2924 PO (21:39)
[2018-03-22] MEDS ORDERED: TIOT185 IH (21:39)
[2018-03-22] MEDS ORDERED: CLON-570 PO (21:39)
[2018-03-22] MEDS ORDERED: ATOR40TA28 PO (21:39)
[2018-03-22] MEDS ORDERED: BUME1TAB17 PO (21:39)
[2018-03-22] MEDS ORDERED: NIFE10 PO (21:39)
[2018-03-22 21:49] LABS: GLUCOSE,POINT OF CARE 253 MG/DL (70-110)
[2018-03-22] MEDS ORDERED: ACETAMINOPHEN 325 MG TABLET PO ONE (22:15)
[2018-03-22] MEDS ORDERED: MORPHINE SULFATE 2 MG/ML SYRINGE IVP ONE (22:45)
[2018-03-22 23:08] LABS: BASOPHILS % (AUTO) 0.5 % (0.0-2.0); EOSINOPHILS % (AUTO) 0.6 % (1.0-6.0); HEMOGLOBIN 10.7 g/dL (12.0-16.0); LYMPHOCYTES # (AUTO) 0.6 K/uL (1.0-4.8); LYMPHOCYTES % (AUTO) 5.2 % (22.0-44.0); MEAN CORPUSCULAR HEMOGLOBIN 30.2 pg (26.0-34.0); MEAN CORPUSCULAR HGB CONC 32.4 G/dL (31.0-37.0); MEAN CORPUSCULAR VOLUME 93 fL (80-100); MONOCYTES # (AUTO) 0.6 K/uL (0.1-1.0); MONOCYTES % (AUTO) 5.4 % (2.0-9.0); NEUTROPHILS # (AUTO) 9.3 K/uL (1.8-7.7); NEUTROPHILS % (AUTO) 88.3 % (40.0-70.0); PLATELET COUNT (AUTO) 193 K/uL (150-450); RED BLOOD CELL COUNT(AUTO) 3.55 MIL/uL (4.00-5.20); RED CELL DISTRIBUTION WIDTH 16.6 % (11.5-14.5)
[2018-03-22 23:17] LABS: CALCIUM, TOTAL 9.3 mg/dL (8.8-10.5); CREATININE 4.08 mg/dL (0.60-1.30); POTASSIUM 3.9 mmol/L (3.5-5.1)
[2018-03-22 23:18] LABS: INR 1.2 (0.9-1.1); PROTHROMBIN TIME 12.6 SEC (9.4-11.6)
[2018-03-22 23:23] LABS: ALBUMIN 3.1 g/dL (3.4-5.0); BILIRUBIN,TOTAL 1.1 mg/dL (0.1-1.0); TOTAL PROTEIN, SERUM 7.8 g/dL (6.4-8.2)
[2018-03-23] MEDS ORDERED: 0.9% SODIUM CHLORIDE 10 ML SYRINGE IVP PRN
[2018-03-23 00:35] VITALS: BP 117/57
[2018-03-23 04:53] VITALS: BP 127/54
[2018-03-23 06:44] LABS: BASOPHILS % (AUTO) 0.7 % (0.0-2.0); EOSINOPHILS % (AUTO) 0.8 % (1.0-6.0); LYMPHOCYTES # (AUTO) 0.9 K/uL (1.0-4.8); LYMPHOCYTES % (AUTO) 11.1 % (22.0-44.0); MEAN CORPUSCULAR HEMOGLOBIN 31.1 pg (26.0-34.0); MEAN CORPUSCULAR HGB CONC 33.5 G/dL (31.0-37.0); MEAN CORPUSCULAR VOLUME 93 fL (80-100); MONOCYTES # (AUTO) 0.5 K/uL (0.1-1.0); MONOCYTES % (AUTO) 6.3 % (2.0-9.0); NEUTROPHILS # (AUTO) 6.8 K/uL (1.8-7.7); NEUTROPHILS % (AUTO) 81.1 % (40.0-70.0); PLATELET COUNT (AUTO) 192 K/uL (150-450); RED BLOOD CELL COUNT(AUTO) 3.23 MIL/uL (4.00-5.20); RED CELL DISTRIBUTION WIDTH 16.3 % (11.5-14.5)
[2018-03-23 06:56] LABS: ALBUMIN 2.9 g/dL (3.4-5.0); BILIRUBIN,TOTAL 0.9 mg/dL (0.1-1.0); CALCIUM, TOTAL 8.7 mg/dL (8.8-10.5); CREATININE 4.28 mg/dL (0.60-1.30); POTASSIUM 3.4 mmol/L (3.5-5.1)
[2018-03-23 08:02] VITALS: BP 125/64
[2018-03-23] MEDS ORDERED: BISACODYL 10 MG RECTAL RECTAL SUPPOSITORY PR PRN (08:45)
[2018-03-23] MEDS ORDERED: ALBUTEROL SULFATE 2.5 MG/0.5 ML NEB SOLUTION NEB PRN (08:45)
[2018-03-23] MEDS ORDERED: ACETAMINOPHEN 325 MG TABLET PO PRN ×2 (08:45)
[2018-03-23] MEDS: CARVEDILOL 6.25 MG TABLET PO SCH ×2 (09:00→20:15)
[2018-03-23] MEDS: DOCUSATE SODIUM 100 MG CAPSULE PO SCH ×2 (09:19→20:15)
[2018-03-23] MEDS: APIXABAN 2.5 MG TABLET PO SCH ×3 (09:19→22:42)
[2018-03-23] MEDS: PANTOPRAZOLE SODIUM 40 MG DR TABLET PO SCH (09:19)
[2018-03-23] MEDS ORDERED: NIFE60TA71 PO (10:46)
[2018-03-23] MEDS: VITAMIN B COMP/VIT C/FOLIC ACID CAPSULE PO SCH (11:06)
[2018-03-23 11:45] VITALS: BP 156/66
[2018-03-23 16:29] VITALS: BP 161/68
[2018-03-23 19:27] VITALS: BP 145/88
[2018-03-23] MEDS: ATORVASTATIN CALCIUM 20 MG TABLET PO SCH (20:15)
[2018-03-24] VITALS (9 sets, daily range): BP systolic 158–214; BP diastolic 68–94
[2018-03-24] MEDS: DOCUSATE SODIUM 100 MG CAPSULE PO SCH ×2 (08:22→21:10)
[2018-03-24] MEDS: PANTOPRAZOLE SODIUM 40 MG DR TABLET PO SCH (08:23)
[2018-03-24] MEDS ORDERED: EPOETIN ALFA 10,000 UNITS/ML 2 ML VIAL SQ SCH (09:00)
[2018-03-24] MEDS ORDERED: AmLODIPine BESYLATE 5 MG TABLET PO SCH (12:00)
[2018-03-24] MEDS: CARVEDILOL 6.25 MG TABLET PO SCH ×2 (13:46→21:10)
[2018-03-24] MEDS: VITAMIN B COMP/VIT C/FOLIC ACID CAPSULE PO SCH (15:15)
[2018-03-24] MEDS: ENALAPRIL MALEATE 20 MG TABLET PO SCH (15:15)
[2018-03-24] MEDS: APIXABAN 2.5 MG TABLET PO SCH (21:10)
[2018-03-24] MEDS: ATORVASTATIN CALCIUM 20 MG TABLET PO SCH (21:10)
[2018-03-25 01:03] LABS: APPEARANCE,URINE TURBID (CLEAR); BILIRUBIN,URINE NEGATIVE (NEGATIVE); GLUCOSE, URINE (UA) 500 mg/dL (NEGATIVE); KETONES,URINE TRACE mg/dL (NEGATIVE); LEUKOCYTE ESTERASE ,URINE LARGE (NEGATIVE); NITRATE,URINE NEGATIVE (NEGATIVE); OCCULT BLOOD,URINE MODERATE (NEGATIVE); PH,URINE 6.5 (5.0-8.0); PROTEIN,URINE SEE CONFIRM (NEGATIVE)
[2018-03-25 01:21] LABS: SULFOSALICYLIC ACID,URINE 4+ (Negative)
[2018-03-25 01:22] LABS: BACTERIA,URINE Many /HPF (None Seen); WBC,URINE >100 /HPF (0-5)
[2018-03-25 01:23] LABS: SQUAMOUS EPITHELIAL CELL,UR Few /LPF (None Seen)
[2018-03-25 05:04] VITALS: BP 181/77
[2018-03-25 06:53] LABS: BASOPHILS % (AUTO) 0.8 % (0.0-2.0); HEMATOCRIT 30.6 % (36-46); HEMOGLOBIN 10.3 g/dL (12.0-16.0); LYMPHOCYTES # (AUTO) 0.8 K/uL (1.0-4.8); LYMPHOCYTES % (AUTO) 11.3 % (22.0-44.0); MEAN CORPUSCULAR HEMOGLOBIN 31.2 pg (26.0-34.0); MEAN CORPUSCULAR HGB CONC 33.9 G/dL (31.0-37.0); MEAN CORPUSCULAR VOLUME 92 fL (80-100); MONOCYTES # (AUTO) 0.5 K/uL (0.1-1.0); MONOCYTES % (AUTO) 7.8 % (2.0-9.0); NEUTROPHILS # (AUTO) 5.6 K/uL (1.8-7.7); NEUTROPHILS % (AUTO) 79.1 % (40.0-70.0); PLATELET COUNT (AUTO) 199 K/uL (150-450); RED BLOOD CELL COUNT(AUTO) 3.31 MIL/uL (4.00-5.20); RED CELL DISTRIBUTION WIDTH 16.3 % (11.5-14.5)
[2018-03-25 07:10] LABS: CALCIUM, TOTAL 8.6 mg/dL (8.8-10.5); CREATININE 3.41 mg/dL (0.60-1.30); POTASSIUM 3.8 mmol/L (3.5-5.1)
[2018-03-25 07:39] VITALS: BP 164/81
[2018-03-25] MEDS: CARVEDILOL 6.25 MG TABLET PO SCH (07:57)
[2018-03-25] MEDS: PANTOPRAZOLE SODIUM 40 MG DR TABLET PO SCH (07:57)
[2018-03-25] MEDS: APIXABAN 2.5 MG TABLET PO SCH (07:57)
[2018-03-25] MEDS: DOCUSATE SODIUM 100 MG CAPSULE PO SCH (07:57)
[2018-03-25] MEDS: VITAMIN B COMP/VIT C/FOLIC ACID CAPSULE PO SCH (07:57)
[2018-03-25] MEDS: ENALAPRIL MALEATE 20 MG TABLET PO SCH (07:57)
[2018-03-25] MEDS ORDERED: NIFEdipine 60 MG ER TABLET PO SCH (09:00)
[2018-03-25 10:55] VITALS: BP 175/65
[2018-03-25] MEDS ORDERED: CEPH-582 PO (14:00)
[2018-03-25] MEDS ORDERED: ENAL20TA60 PO (14:01)
[2018-03-25 15:29] VITALS: BP 147/61
== END 2018-03-25 16:50 | disposition home or self-care (01) | DRG 291 ==
LOC: EMS 21:26 → 5S 23:00
PROVIDERS: ADMIT Internal Medicine; ATTEND Internal Medicine
PROC: 5A1D70Z Performance of Urinary Filtration, Intermittent, Less than 6 Hours Per Day (ICD-10-PCS; principal; 2018-03-24)
DX: I13.2 Hypertensive heart and chronic kidney disease with heart failure and with stage 5 chronic kidney disease, or end stage renal disease (principal); N18.6 End stage renal disease; N39.0 Urinary tract infection, site not specified; I50.9 Heart failure, unspecified; E55.9 Vitamin D deficiency, unspecified; D63.8 Anemia in other chronic diseases classified elsewhere; E11.21 Type 2 diabetes mellitus with diabetic nephropathy; E11.22 Type 2 diabetes mellitus with diabetic chronic kidney disease; E11.319 Type 2 diabetes mellitus with unspecified diabetic retinopathy without macular edema; E78.00 Pure hypercholesterolemia, unspecified; G89.29 Other chronic pain; I25.10 Atherosclerotic heart disease of native coronary artery without angina pectoris; I44.7 Left bundle-branch block, unspecified; J84.10 Pulmonary fibrosis, unspecified; Z82.49 Family history of ischemic heart disease and other diseases of the circulatory system; Z83.3 Family history of diabetes mellitus; Z91.19 Patient's noncompliance with other medical treatment and regimen; Z99.2 Dependence on renal dialysis
CPT/HCPCS: 72131; 76770; 86709; 87081; 87086; 87340; 93005; 96374; G0378; J0885; J2270